=== PATIENT | female | born 1950 | race Caucasian/White ===

== ENCOUNTER → 2017-12-15 | Outpatient (CLI) | payer OTHER | END | disposition home or self-care (01) | LOC: C.PAPS 13:16 | PROVIDERS: ATTEND Obstetrics & Gynecology | DX: Z01.411 Encounter for gynecological examination (general) (routine) with abnormal findings (principal); R87.610 Atypical squamous cells of undetermined significance on cytologic smear of cervix (ASC-US) ==

== ENCOUNTER 2025-01-14 16:37 | Inpatient (IN) ==
--- OUTSIDE RECORDS SUMMARY | 2025-01-14 17:13 | External Medical Summary | Summary of Care ---
Author Name Unknown Organization [facility] Address [address] [place] [address] Phone [phone] Care Team Providers Care Caramel Maker Name Role Phone Tramaine Hills DO Primary Care Provider Reason for Visit * Reason Comments eRx-Medication Refill Encounter Details Date Type Department Care Team ([facility] st Contact Info) Description 11/29/2024 Refill Family Practice [facility] [address] [place] [address] Tramaine Hills DO [address] [place] [address] Encounter for long-term (current) use of medications* Allergies Active Allergy Reactions Criticality Noted Date Comments Sulfa Antibiotics Unknown 01/17/2008 documented as of this encounter (statuses as of 11/30/2024) Medications Denosumab 60 MG/ML Subcutaneous Solution Inject 60 mg under the skin. 1 inj every 6 mo Active PROCTO-MED HC 2.5 % rectal creamIndications: Hemorrhoids, external without complications Administer into the rectum 2 times a day. As needed 30 g 5 020 Active Hydrocortisone Acetate 25 MG Rectal Suppository (Anusol-HC)Indica tions:Hemorrhoids , external without complications Administer into the rectum 2 times a day in the morning and at bedtime as needed for Hemorrhoids. Up to 2 weeks. 24 Suppository 1 022 Active Memantine HCl 10 MG Oral Tablet (Namenda) TAKE 1 TABLET BY MOUTH 2 TIMES A DAY WITH MORNING AND EVENING MEALS. WEEK 4 AND THEREAFTER 180 Tablet 1 024 Active Atorvastatin Calcium 10 MG Oral Tablet (Lipitor)Indicati ons:Mixed hyperlipidemia TAKE 1 TABLET BY MOUTH EVERY MORNING 90 Tablet 3 024 Active Donepezil HCl 10 MG Oral Tablet (Aricept) TAKE 1 TABLET BY MOUTH EVERY DAY 90 Tablet 3 024 Active Loperamide HCl 2 MG Oral Capsule (Imodium)Indicati ons:Full incontinence of feces Take 1 Capsule by mouth 2 times a day as needed for Diarrhea. 60 Capsule 5 025 Active Hydrocortisone 2.5 % External CreamIndications: Eczema, unspecified type Apply topically to affected area 3 times a day. To affected area. 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 06/03/2024 Caregiver stress 06/03/2024 Alcohol ingestion, 1-4 drinks per day 09/30/2023 Personal history of fall 09/30/2023 Periorbital ecchymosis 09/30/2023 Early onset Alzheimer's meredith ntia without behavioral disturbance 11/12/2021 Protein-calorie malnutrition 07/12/2021 Mild cognitive impairment 10/19/2020 Osteoarthritis of right hip 11/09/2014 Senile osteoporosis 05/12/2012 documented as of this encounter (statuses as of 11/30/2024) Resolved Problems Problem Noted Date Diagnosed Date Resolved Date Dementia without behavioral disturbance 10/15/2020 12/04/2021 Overview (07/07/2022): ICD-10 update of inactive term ADVANCE DIRECTIVE INFORMATION 10/10/2009 03/27/2019 Overview (10/10/2009): No, Advance Directive brochure given to patient. Benign neoplasm of colon 10/04/200704/2019 Overview (10/13/2007): hyperplastic reepat colonoscopy in 10 yrs documented as of this encounter (statuses as of 11/30/2024) Immunizations Name Administration Dates Next Due COVID-19 mRNA, LNP-s, No Pre serve, 2-Dose Series (Pfizer) 08/05/2021,12/22/2020,12/01/2020 COVID-19, LNP-s, No Preserve , Kenny-sucrose, Ages 12+ (Pfizer) 01/15/2022 Covid-19, Mrna, Lnp-s, Pf, B ivalent, 30 Mcg, IM, 12 yrs and above (Pfizer) 09/04/2023 H1N1 2009 Influenza, IM 10/27/2009 Pneumococcal Conjugate Vacc, 13 Valent (Prevnar) 03/11/2016 Pneumococcal Polysaccharide PPV23 (Pneumovax) 11/03/2019 Season Influenza, Quad, PF, Adjuvanted, 65+ Yrs, IM (FLUAD) 06/26/2020 Seasonal Influenza Vac., MDV , IM, 0.5 mL (Fluzone) 06/25/2015,07/19/2014,07/02/2013,08/21,07/11/2009,06/19/2009,09/03/2007 Seasonal Influenza Virus Vac cine, Unspecified Formulation 09/04/2023 Seasonal Influenza, High Dos e, Trivalent, PF, IM (Fluzone HD) 11/11/2024 Seasonal Influenza, PF, 6 M & above, IM , (FluLaval or Fluzone) 11/13/2017 Seasonal Influenza, QUAD, wi th Preserv, 6 mons & Above, 0.5 mL, IM 08/12/2018 Seasonal Influenza, Quadriva lent Hd (Fluzone Hd) 07/03/2022,07/12/2021 TD, Preservative Free 10/15/2020 TDAP, Age 7 and older, IM (Adacel) 07/11/2009, Varicella Zoster Vaccine (Adult) 10/10/2009 Zoster Vaccine Recombinant (Shingrix) 02/14/2020 ,11/16/2019 documented as of this encounter Social History Tobacco Use Types Packs/Day Years Used Date Smoking Tobacco: Former Cigarettes 0.5 15 0 10/05/1969 - 10/05/1984 Smokeless Tobacco: Never Comments:no passive smoke ex posures Alcohol Use Standard Drinks/Week Comments Yes 0 (1 standard drink = 0.6 oz pur e alcohol) glass of wine daily PHQ-2 Answer Date Recorded PHQ Adult Total Score 3 07/03/2022 Hunger Vital Sign Answer Date Recorded Within the past 12 months, y ou worried that your food would run out before you got the money to buy more. Never true 07/03/20 22 Within the past 12 months, t he food you bought just didn't last and you didn't have money to get more. 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 Not on file Not on file documented as of this encounter Miscellaneous Notes * Telephone Encounter - [facility] - 11/30/2024 11:18 AM ESTSigned Prescriptions: Disp Refills Omeprazole 20 MG Oral Capsule Delayed Rele*90 Cap*1 Sig: TAKE 1 CAPSULE BY MOUTH DAILY 1 HOUR BEFORE THE FIRST MEAL OF THE DAYAuthorizing Provider: TRAMAINE HILLS User: WOOD GOTTI documented in this encounter Plan of Treatment Upcoming Encounters Date Type Department Care Team (Late st Contact Info) Description 01/20/2025 10:30 AM EDT Telemedicine Neurology, [place] [address] [place] [phone] Kelly Morgan MD [address] [place] [address] [place] [phone] 04/04/2025 2:30 PM EDT Office Visit Rheumatology [facility] [address] [place] [phone] Soco Batres CRNP [address] [facility] [place] [address] 07/10/2025 10:15 AM EDT Office Visit Neurology, [place] [address] [place] [address] [phone] Kelly Morgan MD [address] [place] [address] [place] [id number] Scheduled Orders Name Type Priority Associated Diagnoses Orde r Schedule VITAMIN B12 Lab Routine Encounter for long-term (current) use of medications Expected: 11/30/2024 (Approximate), Expires: 11/30/2025 Scheduled Procedures Name Priority Associated Diagnoses Date/Ti me COLONOSCOPY FLEXIBLE PROXIMAL DIAGNOSTIC Recall Colon cancer screening Health Maintenance Due Date Last Done Comments Cologuard 1995 Fecal Occult Blood Test 1995 Sigmoidoscopy 11/12/2007 11/12/2002, 11/11/2002 Adult Wellness Visit 07/03/2023 07/03/2022 Depression Screening 07/03/2023 07/03/2022 COVID-19 Vaccine ( season) 2024 09/04/2023, 01/15/2022, 08/05/2021, Additional history exists Mammogram 11/04/2025 11/04/2024, 08/06, 08/15/2022, Additional history exists Colonoscopy 12/20/2025 12/21/2015, 12/03, 10/04/2007 Colorectal Cancer Screening 12/20/2025 DXA Scan 09/05/2026 09/05/2024, 08/06, 08/13/2020, Additional history exists Lipid Panel 03/28/2029 03/28/2024, 09/05, 09/23/2021, Additional history exists DTap/Tdap Vaccines (4 - Td or Tdap) 10/15/2030 10/15/2020, 07/11/2009, 06/19/2009 Pneumococcal Vaccine: 50+ Years Completed 11/03/2019, 03/11/2016 Zoster Vaccines Completed 02/14/2020, 11/05, 10/10/2009 VITAMIN D LEVEL ONCE IN A LIFETIME-USE SMARTSET# [id number] Completed 03/28/2024, 03/16/2023, 09/25/2022, Additional history exists Influenza Vaccine (FLU shot) Completed 04/2025, 09/04/2023, 07/03/2022, Additional history exists HPV (Gardasil) Vaccine Aged Out No lo nger eligible based on patient's age to complete this topic Hepatitis B Vaccine Aged Out No longe r eligible based on patient's age to complete this topic MENINGOCOCCAL (MENACTRA/MENVEO) Aged Out No longer eligible based on patient's age to complete this topic Meningitis B Vaccine (Bexsero/Trumemba) Aged Out No longer eligible based on patient's age to complete this topic documented as of this encounter Medical Devices Not on filedocumented as of this encounter Visit Diagnoses Diagnosis Encounter for long-term (current) use of medications- Primary Encounter for long-term (current) use of other medications documented in this encounter Care Teams Caramel Maker Relationship Specialty Start Date End Date Tramaine Hills DO [address] [place] [address] PCP - General Family Medicine 07/02/18 documented as of this encounter
--- OUTSIDE RECORDS SUMMARY | 2025-01-14 17:13 | External Medical Summary | Summary of Care ---
Author Name Unknown Organization [facility] Address [address] [place] [address] Phone [phone] Care Team Providers Care Scooper Name Role Phone Ellyn Hills DO Primary Care Provider Encounter Details Date Type Department Care Team (Late st Contact Info) Description 09/26/2024 Orders Only Outcomes Research Department [address] [place] [address] Olamide Delgado [facility] Other*[id number] Allergies Active Allergy Reactions Criticality Noted Date Comments Sulfa Antibiotics Unknown 01/17/2008 documented as of this encounter (statuses as of 09/26/2024) Medications Denosumab 60 MG/ML Subcutaneous Solution Inject 60 mg under the skin. 1 inj every 6 mo Active PROCTO-MED HC 2.5 % rectal creamIndications:H emorrhoids, external without complications Administer into the rectum 2 times a day. As needed 30 g 5 01/30/20 20 Active Hydrocortisone 2.5 % External CreamIndications:H emorrhoids, external without complications Apply topically to affected area 3 times a day . To affected area. hemorrhoids 30 g 5 03/18/20 22 Active Hydrocortisone Acetate 25 MG Rectal Suppository (Anusol-HC)Indicat ions:Hemorrhoids, external without complications Administer into the rectum 2 times a day in the morning and at bedtime as needed for Hemorrhoids. Up to 2 weeks. 24 Suppository 1 03/18/20 22 Active Memantine HCl 10 MG Oral Tablet (Namenda) TAKE 1 TABLET BY MOUTH 2 TIMES A DAY WITH MORNING AND EVENING MEALS. 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 06/03/2024 Caregiver stress 06/03/2024 Alcohol ingestion, 1-4 drinks per day 09/30/2023 Personal history of fall 09/30/2023 Periorbital ecchymosis 09/30/2023 Early onset Alzheimer's meredith ntia without behavioral disturbance 11/12/2021 Protein-calorie malnutrition 07/12/2021 Mild cognitive impairment 10/19/2020 Osteoarthritis of right hip 11/09/2014 Senile osteoporosis 05/12/2012 documented as of this encounter (statuses as of 09/26/2024) Resolved Problems Problem Noted Date Diagnosed Date Resolved Date Dementia without behavioral disturbance 10/15/2020 12/04/2021 Overview (07/07/2022): ICD-10 update of inactive term ADVANCE DIRECTIVE INFORMATION 10/10/2009 03/27/2019 Overview (10/10/2009): No, Advance Directive brochure given to patient. Benign neoplasm of colon 10/04/200704/2019 Overview (10/13/2007): hyperplastic reepat colonoscopy in 10 yrs documented as of this encounter (statuses as of 09/26/2024) Immunizations Name Administration Dates Next Due COVID-19 mRNA, LNP-s, No Pre serve, 2-Dose Series (SingleFeed) 08/05/2021,12/22/2020,12/01/2020 COVID-19, LNP-s, No Preserve , Kenny-sucrose, [...] Vac cine, Unspecified Formulation 09/04/2023 Seasonal Influenza, PF, 6 M & above, [...] on file documented as of this encounter Plan of Treatment Upcoming Encounters Date Type Department Care Team (Late st Contact Info) Description 10/03/2024 2:30 PM EST Nurse Only Rheumatology [facility] [address] [facility] [place] [address] Pf, Nurse Rheum [address] [facility] [place] [address] 10/06/2024 8:00 AM EST Telemedicine Neurology, [place] [address] [facility] [phone] Kelly Morgan MD [address] [place] [address] [place] [phone] 11/11/2024 8:40 AM EST Office Visit Family Practice [facility] [address] [facility] [place] [address] Ellyn Hills, [address] [facility] [place] [address] Scheduled Orders Name Type Priority Associated Diagnoses Orde r Schedule MYCODE SUBSEQUENT ADULT Lab Routine MyCode Research Other*[id number] Every 6 Months for 2 Occurrences starting 09/26/2024 until 10/16/2025 Scheduled Procedures Name Priority Associated Diagnoses Date/Ti me COLONOSCOPY FLEXIBLE PROXIMAL DIAGNOSTIC Recall Colon cancer screening Health Maintenance Due Date Last Done Comments Cologuard 1995 Fecal Occult Blood Test 1995 Sigmoidoscopy 11/12/2007 11/12/2002, 11/11/2002 Adult Wellness Visit 07/03/2023 07/03/2022 Depression Screening 07/03/2023 07/03/2022 COVID-19 Vaccine (6 - 2024-25 season) 2024 09/04/2023, 01/15/2022, 08/05/2021, Additional history exists Influenza Vaccine (FLU shot) (#1) 2024 09/04/2023, 07/03/2022, 07/12/2021, Additional history exists Mammogram 08/25/2024 08/25/2023, 08/05, 07/30/2022, Additional history exists Colonoscopy 12/20/2025 12/21/2015, 12/03, 10/04/2007 Colorectal Cancer Screening 12/20/2025 DXA Scan 09/05/2026 09/05/2024, 08/06, 08/13/2020, Additional history exists Lipid Panel 03/28/2029 03/28/2024, 09/05, 09/23/2021, Additional history exists DTap/Tdap Vaccines (4 - Td or Tdap) 10/15/2030 10/15/2020, 07/11/2009, 06/19/2009 Pneumococcal Vaccine: 65+ Years Completed 11/03/2019, 03/11/2016 Zoster Vaccines Completed 02/14/2020, 11/05, 10/10/2009 VITAMIN D LEVEL ONCE IN A LIFETIME-USE SMARTSET# [id number] Completed 03/28/2024, 03/16/2023, 09/25/2022, Additional history exists HPV (Gardasil) Vaccine Aged [...] as of this encounter Visit Diagnoses Diagnosis MyCode Research Other*[id number] documented in this encounter Care Teams Scooper Relationship Specialty Start Date End Date Ellyn Hills DO [address] [place] [address] PCP - General Family Medicine 07/02/18 documented as of this encounter
--- OUTSIDE RECORDS SUMMARY | 2025-01-14 17:13 | External Medical Summary | Summary of Care ---
Author Name Unknown Organization [facility] Address [address] [place] [address] Phone [phone] Care Team Providers Care Protocol Officer Name Role Phone Ellyn Hills Primary Care Provider Reason for Visit * Reason Onset Date Comments Order Request 09/26/2024 Prolia Encounter Details Date Type Department Care Team ([facility] st Contact Info) Description 09/26/[address] [facility] [address] [place] [address] Soco Batres CRNP [address] [facility], [place] [phone] Order Request (Prolia/) Allergies Active Allergy Reactions Criticality Noted Date Comments Sulfa Antibiotics Unknown 01/17/2008 documented as of this encounter (statuses as of 09/27/2024) Medications Denosumab 60 MG/ML Subcutaneous Solution Inject [...] DAY 90 Tablet 3 06/09/20 24 Active Hospital, Clinic, or Other Facility Administered Medication Ordered Dose Route Frequency Start Date End Date Status Denosumab (Prolia) subcut inj 60 mgIndications:Senile osteoporosis 60 mg SC ONCE 10/03/2024 10/04/2024 Active documented as of this encounter (statuses as of 09/27/2024) Active Problems Problem Noted Date Diagnosed Date [...] as of this encounter (statuses as of 09/27/2024) Resolved Problems Problem Noted Date Diagnosed Date Resolved Date Dementia without behavioral disturbance 10/15/2020 12/04/2021 Overview (07/07/2022): ICD-10 update of inactive term ADVANCE DIRECTIVE INFORMATION 10/10/2009 03/27/2019 Overview (10/10/2009): No, Advance Directive brochure given to patient. Benign neoplasm of colon 10/04/200704/2019 Overview (10/13/2007): hyperplastic reepat colonoscopy in 10 yrs documented as of this encounter (statuses as of 09/27/2024) Immunizations Name Administration Dates Next Due COVID-19 [...] encounter Miscellaneous Notes * Telephone Encounter - Justin Santana MD - 09/27/2024 11:24 AM EST signed * Telephone Encounter - Judith Jack LPN - 09/26/2024 3:50 PM EST Chart reviewed and labs noted to be within normal limits. Patient has been seen within the last 12 months by a Rheumatology provider. Prolia authorization approved and updated in referral. Last injection has been > 6 months and 1 day. CAM orders pended for signature. Thank you! documented in this encounter Plan of Treatment Upcoming Encounters Date Type Department Care Team (Late st Contact Info) Description 10/03/2024 2:30 PM EST Nurse Only Rheumatology [place] [id number] [place] [address] Pf, Nurse Rheum [facility] [place] [address] 10/06/2024 8:00 AM EST Telemedicine Neurology, [place] [address] [place] [address] Kelly Morgan MD [address] [place] [address] [place] [phone] 11/11/2024 8:40 AM EST Office Visit Family Practice [facility] [address] [facility] [place] [address] Ellyn Hills, [address] [facility] [place] [address] Scheduled Procedures Name Priority Associated Diagnoses Date/Ti [...] D LEVEL ONCE IN A LIFETIME-USE SMARTSET# [id number] Completed 03/28/2024, 03/16/2023, 09/25/2022, Additional history exists [...] as of this encounter Visit Diagnoses Diagnosis Senile osteoporosis- Primary documented in this encounter Care Teams Protocol Officer Relationship Specialty Start Date End Date Ellyn Hills DO [address] [place] [address] PCP - General Family Medicine 07/02/18 documented as of this encounter
--- OUTSIDE RECORDS SUMMARY | 2025-01-14 17:13 | External Medical Summary | Summary of Care ---
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)*; Aphasia Allergies Active Allergy Reactions Criticality Noted Date Comments Sulfa Antibiotics Unknown 01/17/2008 documented as of this encounter (statuses as of 10/06/2024) Medications Denosumab 60 MG/ML Subcutaneous Solution Inject [...] as of this encounter (statuses as of 10/06/2024) Active Problems Problem Noted Date Diagnosed Date [...] as of this encounter (statuses as of 10/06/2024) Resolved Problems Problem Noted Date Diagnosed Date Resolved Date Dementia without behavioral disturbance 10/15/2020 12/04/2021 Overview (07/07/2022): ICD-10 update of inactive term ADVANCE DIRECTIVE INFORMATION 10/10/2009 03/27/2019 Overview (10/10/2009): No, Advance Directive brochure given to patient. Benign neoplasm of colon 10/04/200704/2019 Overview (10/13/2007): hyperplastic reepat colonoscopy in 10 yrs documented as of this encounter (statuses as of 10/06/2024) Immunizations Name Administration Dates Next Due COVID-19 mRNA, LNP-s, No Pre serve, 2-Dose Series ([employer]) 08/05/2021,12/22/2020,12/01/2020 COVID-19, LNP-s, No Preserve , Kenny-sucrose, [...] on file documented as of this encounter Progress Notes * Kelly Morgan MD - 10/06/2024 8:04 AM EST Patient location: HOME. I was in a hospital or clinic location. After connecting through televideo,patient was verified with two unique identifiers. Patient (or authorized legal desk representative) was then informed that this was a Telemedicine visit and being conducted confidentially over secure lines. Methods to assure confidentiality were taken. Patient acknowledged consent and understanding of pr ivacy and security of the Telemedicine visit. The patient agreed to participate. [facility] Today I had the pleasure of seeing Olesya Sherman in follow-up at the [facility] Cognition Program. 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 She underwent neuropsychological testing which showed profound language impairment, as well as someexecutive dysfunction, attention/working memory and delayed recall (some preserved cuing). Her MRI was relatively unremarkable--mild vascular disease changes and atrophy, possibly more predominant posteriorly. The most important diagnosis in this case is late moderate/early severe dementia, probable Alzheimer's disease with a language predominance. She needs help with all iADLs and assistance with ADLS--including bathing, dressing, cutting food/feeding. Has increased trouble toileting--no incontinence. Cannot test anymore--profound aphasia. Mild EPS--hunched posture; per shuffling steps, no falls or trouble with stairs. She walks but less now--[facility]. They have been to elder miter cutter. Behavioral Issues: excessive drinking has resolved. No anxiety but some restlessness. Safety Issues: None. No wandering. Balance reported as OK. Swallow OK. still working, plans to retire in the next 1-2 years in phases. They are on waitlist for [facility]. is primary caregiver; [employer] while he is at work; he is looking into them coming in for more hours. I provided in their check out material for the patient and spouse a written summary that outlines the management plan thus far after providing counseling on these items, which I also list below. Bennie return to our clinic about January 2025 Thank you once again for allowing us to participate in the care of this patient. No changes made today. No orders found. There are no Patient Instructions on file for this visit. Interval History Since our last visit, by report of the spouse Olesya Sherman has been doing worse. Much more trouble with mobility--shuffling. She is more restless, like starting to go on treadmill 5 mins, then bathroom, then stroll, then back to treadmill. She is not getting her 20K steps. Diet of OJ and chocolate cookies. Not eating as much breakfast and lunch. Will eat main protein at dinner. She is not losing weight. No trouble with swallowing. May pepper picker spoon instead of fork, or reminders needed to use utensil--may eat with hands. Sleep: good. She nods off in the day--last week or so--might be part of the cold she is fighting. She has been more "anxious"--tense a lot--when he is helping her dress she wants to help, but missing the sleeve. Body is tense. Explained that this may be EPS. She may suddlenly decide she needs to do something--like while eating has to let the cat out. She is more impulsive, and things have to bedone right now for her. No compulsive behaviors. SHe tends to fill glasses to the brim. Routine of house upset bc of holidays--she handled it OK and glad to see everyone. They are looking at [employer]. They will need assessments--PCP, plus fall assessment, and cognitive testing. They have moved from waitlist to more of a "short list". He is still working. 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 No one coming in while he is not teaching--but this will have to change. They are working with [employer]. has had increased stress level. It is hard to get anything done except day to day. He wantsto keep his job and his health insurance. He made a proprosal to go into phased fpc over 2 years starting in April. The toileting is a big issue. She knows when she needs to go. She is now in disposable underwear. That saves one step in cleaning up. She has a lot of gas, passes it immediately, whatever the situation. When he changes underwear there is some evidence of excrement, he cleans her and puts on clean underwear. She is leaving excrement on the side of wall and front of toilet and on the floor. Husbandsigned up online for caregiver course at [facility]. With regards to our instructions on last visit, the patient has been able to follow all recommendations. With regards to her health status during this time period, has not had any serious surgeries, emergency department visits or hospitalizations. Since their last visit, she has not had changes to her medications other than what I recommended onher last visit. Current Outpatient Medications Medication Sig Dispense Refill Donepezil HCl 10 MG Oral Tablet (Aricept) TAKE 1 TABLET BY MOUTH EVERY DAY 90 Tablet 3 Atorvastatin Calcium 10 MG Oral Tablet (Lipitor) TAKE 1 TABLET BY MOUTH EVERY MORNING 90 Tablet 3 Omeprazole 20 MG Oral Capsule Delayed Release (PriLOSEC) TAKE 1 CAPSULE BY MOUTH DAILY 1 HOUR BEFORE THE FIRST MEAL OF THE DAY 90 Capsule 1 Memantine HCl 10 MG Oral Tablet (Namenda) TAKE 1 TABLET BY MOUTH 2 TIMES A DAY WITH MORNING AND EVENING MEALS. WEEK 4 AND THEREAFTER 180 Tablet 1 Hydrocortisone 2.5 % External Cream Apply topically to affected area 3 times a day . To affected area. hemorrhoids 30 g 5 Hydrocortisone Acetate 25 MG Rectal Suppository (Anusol-HC) Administer into the rectum 2 times a day in the morning and at bedtime as needed for Hemorrhoids. Up to 2 weeks. 24 Suppository 1 PROCTO-MED HC 2.5 % rectal cream Administer into the rectum 2 times a day. As needed 30 g 5 Denosumab 60 MG/ML Subcutaneous Solution Inject 60 mg under the skin. 1 inj every 6 mo No current facility-administered medications for this visit. Review of patient's allergies indicates: Allergen Reactions Sulfa Antibiotics Unknown Results for orders placed or performed in visit on 05/23/24 CULTURE, URINE, QUANTITATIVE Specimen: Urine, Clean Catch Result Value Ref Range Culture Growth No significant growth URINALYSIS, POINT OF CARE (ENTER/EDIT) Result Value Ref Range Color, Urine Yellow Yellow or Light Yellow Clarity, Urine Clear Clear Glucose, Urine Negative Negative mg/dL Bilirubin, Urine Negative Negative Ketone, Urine Negative Negative mg/dL Specific Kelford, Urine 1.015 1.003 - 1.030 Blood, Urine Trace-lysed Negative pH, Urine 7.0 5.0 - 7.5 units Protein, Urine Negative Negative mg/dL Urobilinogen, Urine 0.2 0.2 - 1.0 mg/dL Nitrite, Urine Negative Negative Esterase, Urine Negative Negative Examination There were no vitals taken for this visit. On examination today, the patient’s general appearance was well nourished, well developed, and inno apparent distress. Non-coherent speech. Can follow simple commands with prompting (eg stand up, walk). Can stand on own, flexed arms when walking, stooped posture. No evidence of shuffling today. Facial expression reduced. Additional Information Permission was not requested for observers to be in the room during this visit. Today, I personally spent 44 minutes in pre reviewing the patient's outside/prior records, separately obtaining history, performing a medically appropriate history and exam as documented above, counseling and educating the patient, documenting the clinical information in the EMR, independently revie wing and interpreting results as documented above and ordering prescription medications, tests and/or procedures as documented above Thank you once for consulting us on this interesting case. Assessment and plan can be found at the beginning of this consultation note. documented in this encounter Plan of Treatment Upcoming Encounters Date Type Department Care Team (Late st Contact Info) Description 11/11/2024 8:40 AM EST Office Visit [address] [place], [place] [address] Ellyn Hills, [address] [place] [address] 04/04/2025 2:30 PM EDT Office Visit Rheumatology [facility] [address] [place] [address] Soco Batres CRNP [address] [employer] [place] [address] Scheduled Procedures Name Priority Associated Diagnoses Date/Ti [...] D LEVEL ONCE IN A LIFETIME-USE SMARTSET# [id number] Completed 03/28/2024, 03/16/2023, 09/25/2022, Additional history exists [...] as of this encounter Visit Diagnoses Diagnosis 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
--- OUTSIDE RECORDS SUMMARY | 2025-01-14 17:13 | External Medical Summary | Summary of Care ---
Author Name Unknown Organization [facility] Address [address] [place] [address] Phone [phone] Care Team Providers Care Filtration Plant Operator Name Role Phone Michaelwilton Ellyn Quiñonez DO Primary Care Provider Reason for Visit * Reason Onset Date Comments Medication Administration prolia Medication Administration 10/03/2024 Prolia * Precert (Within 30 days (routine)) - Closed Specialty Diagnoses / Procedures Referred By Contac t Referred To Contact Rheumatology Diagnoses Age-related osteoporosis without current pathological fracture Procedures MT DENOSUMAB INJECTION Justin Santana MD [address] [place] [address] Phone: tel: fax: Justin Santana MD [address] [place] [address] Phone: tel: fax: Referral ID Status Reason Start Date Expiration Date V isits Requested Visits Authorized [id number] Closed Precert 03/03/2024 03/02/2025 2 2 Encounter Details Date Type Department Care Team ([facility] st Contact Info) Description 10/03/2024 2:30 PM EST Nurse Only Rheumatology [place] [id number] [facility] [place] [address] Pf, Nurse Rheum [facility] [place] [address] Medication Administration (prolia); Medica... Allergies Active Allergy Reactions Criticality Noted Date Comments Sulfa Antibiotics Unknown 01/17/2008 documented as of this encounter (statuses as of 10/03/2024) Medications Denosumab 60 MG/ML Subcutaneous Solution Inject 60 mg under the skin. 1 inj every 6 mo Active PROCTO-MED HC 2.5 % rectal creamIndications:H emorrhoids, external without complications Administer into the rectum 2 times a day. As needed 30 g 01/30/20 20 Active Hydrocortisone 2.5 % External [...] mgIndications:Senile osteoporosis 60 mg SC ONCE 10/03/2024 10/03/2024 Ended documented as of this encounter (statuses as of 10/03/2024) Active Problems Problem Noted Date Diagnosed Date [...] as of this encounter (statuses as of 10/03/2024) Resolved Problems Problem Noted Date Diagnosed Date Resolved Date Dementia without behavioral disturbance 10/15/2020 12/04/2021 Overview (07/07/2022): ICD-10 update of inactive term ADVANCE DIRECTIVE INFORMATION 10/10/2009 03/27/2019 Overview (10/10/2009): No, Advance Directive brochure given to patient. Benign neoplasm of colon 10/04/200704/2019 Overview (10/13/2007): hyperplastic reepat colonoscopy in 10 yrs documented as of this encounter (statuses as of 10/03/2024) Immunizations Name Administration Dates Next Due COVID-19 mRNA, LNP-s, No Pre serve, 2-Dose Series ([employer]) 08/05/2021,12/22/2020,12/01/2020 COVID-19, LNP-s, No Preserve , Kenny-sucrose, [...] on file documented as of this encounter Last Filed Vital Signs Vital Sign Reading Time Taken Comments Blood Pressure - - Pulse - - Temperature 36.4 °C (97.5 °F) 10/03/2024 2:43 PM ES T Respiratory Rate - - Oxygen Saturation - - Inhaled Oxygen Concentration - - Weight - - Height - - Body Mass Index - - documented in this encounter Progress Notes * Judith Jack LPN - 10/03/2024 2:43 PM EST Olesya Sherman presents today for administration of Prolia. She understands the benefits and risks of this treatment. An educational pamphlet was given to the patient. Prolia 60 mg was administered subcutaneously. The patient tolerated the procedure without problems. She will return in 6 months for the next injection and evaluation. Judith Jack LPN documented in this encounter Nursing Notes * Judith Jack LPN - 10/03/2024 2:43 PM EST Chief Complaint Patient presents with Medication Administration prolia Patient denies being on any antibiotics, no current infections, no upcoming surgeries or dental procedures, no open wounds or sores, no current fractures. documented in this encounter Plan of Treatment Upcoming Encounters Date Type Department Care Team (Late st Contact Info) Description 10/06/2024 8:00 AM EST Telemedicine Neurology, [place] [address] [place] [address] Kelly Morgan MD [address] [place] [address] [place] [address] 11/11/2024 8:40 AM EST Office Visit Family Practice [facility] [address] [facility] [place] [address] Ellyn Hills, [address] [facility] [place], [place] [address] 04/04/2025 2:30 PM EDT Office Visit Rheumatology [facility] [address] [place] [address] Soco Batres CRNP [address] [place] [address] Scheduled Procedures Name Priority Associated Diagnoses Date/Ti [...] D LEVEL ONCE IN A LIFETIME-USE SMARTSET# [id number] Completed 03/28/2024, 03/16/2023, 09/25/2022, Additional history exists [...] Senile osteoporosis- Primary documented in this encounter Administered Medications Inactive Administered Medications - up to 3 most recent administrations Medication Order MAR Action Action Date Dose Rate Site Denosumab (Prolia) subcut inj 60 mg 60 mg, Subcutaneous, ONCE, On 10/03/24 at 1430, For 1 doseIndications:Senile osteoporosis Given 10/03/2024 2:47 PM EST 60 mg Arm Left Upper documented in this encounter Care Teams Filtration Plant Operator Relationship Specialty Start Date End Date Ellyn Hills DO [address] [place], [place] [phone] PCP - General Family Medicine 07/02/18 documented as of this encounter
--- OUTSIDE RECORDS SUMMARY | 2025-01-14 17:13 | External Medical Summary | Summary of Care ---
Author Name Unknown Organization [facility] Address [address] [place] [address] Phone [phone] Care Team Providers Care Carrot Grader Inspector Name Role Phone Jeana Ellyn Quiñonez DO Primary Care Provider Encounter Details Date Type Department Care Team ([facility] st Contact Info) Description 12/07/2024 Orders Only PATIENT PORTAL DO NOT DELETE THIS DEPT [facility] [id number] Allergies Active Allergy Reactions Criticality Noted Date Comments Sulfa Antibiotics Unknown 01/17/2008 documented as of this encounter (statuses as of 12/07/2024) Medications Denosumab 60 MG/ML Subcutaneous Solution Inject 60 mg under the skin. 1 inj every 6 mo Active PROCTO-MED HC 2.5 % rectal creamIndications:H emorrhoids, external without complications Administer into the rectum 2 times a day. As needed 30 g 5 01/30/20 20 Active Hydrocortisone Acetate 25 MG Rectal Suppository [...] THEREAFTER 180 Tablet 1 03/10/20 24 Active Atorvastatin Calcium 10 MG Oral Tablet (Lipitor)Indicatio ns:Mixed hyperlipidemia TAKE 1 TABLET BY MOUTH EVERY MORNING 90 Tablet 3 06/08/20 24 Active Donepezil HCl 10 MG Oral Tablet (Aricept) TAKE 1 TABLET BY MOUTH EVERY DAY 90 Tablet 3 06/09/20 24 Active Loperamide HCl 2 MG Oral Capsule (Imodium)Indicatio ns:Full incontinence of feces Take 1 Capsule by mouth 2 times a day as needed for Diarrhea. 60 Capsule 5 11/11/19 25 Active Hydrocortisone 2.5 % External CreamIndications:E czema, unspecified type Apply topically to affected area 3 times a day. To affected area. Rash on leg 60 g 5 11/11/19 25 Active Omeprazole 20 MG Oral Capsule Delayed Release (PriLOSEC) TAKE 1 CAPSULE BY MOUTH DAILY 1 HOUR BEFORE THE FIRST MEAL OF THE DAY 90 Capsule 1 11/30/19 25 Active documented as of this encounter (statuses as of 12/07/2024) Active Problems Problem Noted Date Diagnosed Date [...] as of this encounter (statuses as of 12/07/2024) Resolved Problems Problem Noted Date Diagnosed Date Resolved Date Dementia without behavioral disturbance 10/15/2020 12/04/2021 Overview (07/07/2022): ICD-10 update of inactive term ADVANCE DIRECTIVE INFORMATION 10/10/2009 03/27/2019 Overview (10/10/2009): No, Advance Directive brochure given to patient. Benign neoplasm of colon 10/04/200704/2019 Overview (10/13/2007): hyperplastic reepat colonoscopy in 10 yrs documented as of this encounter (statuses as of 12/07/2024) Immunizations Name Administration Dates Next Due COVID-19 [...] Description 01/20/2025 10:30 AM EDT Telemedicine Neurology, [place] [address] [place] [phone] Kelly Morgan MD [address] [place] [address] [place] [address] 04/04/2025 2:30 PM EDT Office Visit Rheumatology [facility] [address] [place] [phone] Soco Batres CRNP [address] [facility] [place] [address] 07/10/2025 10:15 AM EDT Office Visit Neurology, [place] [address] [place] [phone] Kelly Morgan MD [address] [place] [address] [place] [address] Scheduled Procedures Name Priority Associated Diagnoses Date/Ti [...] D LEVEL ONCE IN A LIFETIME-USE SMARTSET# [id number] Completed 03/28/2024, 03/16/2023, 09/25/2022, Additional history exists [...] Not on filedocumented as of this encounter Care Teams Carrot Grader Inspector Relationship Specialty Start Date End Date Ellyn Hills DO [address] [place] [address] PCP - General Family Medicine 07/02/18 documented as of this encounter
--- OUTSIDE RECORDS SUMMARY | 2025-01-14 17:13 | External Medical Summary | Summary of Care ---
Author Name Unknown Organization [facility] Address [address] [place] [address] Phone [phone] Care Team Providers Care Gumming Machine Operator Name Role Phone Ellyn Hills DO Primary Care Provider Reason for Visit * Reason Onset Date Comments Advice 07/27/2024 Appointment 07/27/2024 Encounter Details Date Type Department Care Team ([facility] st Contact Info) Description 07/27/2024 Telephone Family Practice [facility] [address] [place] [address] Ellyn Hills DO [address] [place] [address] Advice; Appointment Allergies Active Allergy Reactions Criticality Noted Date Comments Sulfa Antibiotics Unknown 01/17/2008 documented as of this encounter (statuses as of 10/26/2024) Medications Denosumab 60 MG/ML Subcutaneous Solution Inject [...] as of this encounter (statuses as of 10/26/2024) Active Problems Problem Noted Date Diagnosed Date [...] as of this encounter (statuses as of 10/26/2024) Resolved Problems Problem Noted Date Diagnosed Date Resolved Date Dementia without behavioral disturbance 10/15/2020 12/04/2021 Overview (07/07/2022): ICD-10 update of inactive term ADVANCE DIRECTIVE INFORMATION 10/10/2009 03/27/2019 Overview (10/10/2009): No, Advance Directive brochure given to patient. Benign neoplasm of colon 10/04/200704/2019 Overview (10/13/2007): hyperplastic reepat colonoscopy in 10 yrs documented as of this encounter (statuses as of 10/26/2024) Immunizations Name Administration Dates Next Due COVID-19 mRNA, LNP-s, No Pre serve, 2-Dose Series ([employer]) 08/05/2021,12/22/2020,12/01/2020 COVID-19, LNP-s, No Preserve , Kenny-sucrose, [...] encounter Miscellaneous Notes * Telephone Encounter - Ana Romeo OSA - 09/09/2024 1:28 PM EST Talked to Alberto, pt no longer needs acute appointment but did schedule return visit with Dr. Hills in Nov * Telephone Encounter - Ana Romeo OSA - 09/07/2024 2:24 PM EST Called pt and left vm to call us if she needs appointment. Has not been seen yet and has not returned calls * Telephone Encounter - Sarah Druán OSA - 08/22/2024 1:19 PM EST Contacted patient to schedule an appointment and left a vm for patient to call back and get scheduled. * Telephone Encounter - Nila Marquez OSA - 07/27/2024 3:26 PM EDT No Appointments Available Patient declined appointments?: No What Visit Type is needed? Acute If Acute Visit Type is needed, were surrounding clinics offered to patient (Yes/No)? Yes Was patient offered appointments with other available providers (Yes/No)? Yes See Call Details? (Yes or No): Yes Prefers Thursday morning or late Thursday afternoon. Or anytime after 5:30pm on . documented in this encounter Plan of Treatment Upcoming Encounters Date Type Department Care Team (Late st Contact Info) Description 11/11/2024 8:40 AM EST Office Visit Family Practice [facility] [address] [facility] [place] [address] Ellyn [place], [address] [facility] [place] [address] 04/04/2025 2:30 PM EDT Office Visit Rheumatology [facility] [address] [place] [phone] Soco Batres CRNP [address] [facility] [place] [address] Scheduled Procedures Name Priority Associated Diagnoses Date/Ti [...] D LEVEL ONCE IN A LIFETIME-USE SMARTSET# [id number] Completed 03/28/2024, 03/16/2023, 09/25/2022, Additional history exists [...] filedocumented as of this encounter Care Teams Gumming Machine Operator Relationship Specialty Start Date End Date Ellyn Hills DO [address] [place] [address] PCP - General Family Medicine 07/02/18 documented as of this encounter
--- OUTSIDE RECORDS SUMMARY | 2025-01-14 17:13 | External Medical Summary | Summary of Care ---
Author Name Unknown Organization [facility] Address [address] [place] [address] Phone [phone] Care Team Providers Care Municipal Clerk Name Role Phone Jeana Ellyn Olamide Primary Care Provider Encounter Details Date Type Department Care Team ([facility] st Contact Info) Description 05/16/2024 Telephone Neurology, [place] Jamey Chirinos [address] [place] [address] Kelly Morgan MD [address] [place] [address] Allergies Active Allergy Reactions Criticality Noted Date Comments Sulfa Antibiotics Unknown 01/17/2008 documented as of this encounter (statuses as of 08/15/2024) Medications Denosumab 60 MG/ML Subcutaneous Solution Inject 60 mg under the skin. 1 inj every 6 mo Active PROCTO-MED HC 2.5 % rectal creamIndications: Hemorrhoids, external without complications Administer into the rectum 2 times a day. As needed 30 g 5 01/30/20 20 Active Hydrocortisone 2.5 % External CreamIndications: Hemorrhoids, external without complications Apply topically to affected [...] THEREAFTER 180 Tablet 1 03/10/20 24 Active documented as of this encounter (statuses as of 08/15/2024) Active Problems Problem Noted Date Diagnosed Date [...] as of this encounter (statuses as of 08/15/2024) Resolved Problems Problem Noted Date Diagnosed Date Resolved Date Dementia without behavioral disturbance 10/15/2020 12/04/2021 Overview (07/07/2022): ICD-10 update of inactive term ADVANCE DIRECTIVE INFORMATION 10/10/2009 03/27/2019 Overview (10/10/2009): No, Advance Directive brochure given to patient. Benign neoplasm of colon 10/04/200704/2019 Overview (10/13/2007): hyperplastic reepat colonoscopy in 10 yrs documented as of this encounter (statuses as of 08/15/2024) Immunizations Name Administration Dates Next Due COVID-19 mRNA, LNP-s, No Pre serve, 2-Dose Series ([employer]) 08/05/2021,12/22/2020,12/01/2020 COVID-19, LNP-s, No Preserve , Kenny-sucrose, [...] Care Team (Late st Contact Info) Description 09/05/2024 10:30 AM EST Imaging Radiology, [address] [place] [address] 10/03/2024 2:30 PM EST Nurse Only Rheumatology [address] [place] [address] Pf, Nurse Rheum [address] [place] [address] [place] [address] 10/06/2024 8:00 AM EST [facility] [place] [address] [facility] [phone] Kelly Morgan MD [address] [place] [address] [place] [address] Scheduled Procedures Name Priority Associated Diagnoses Date/Ti [...] 08/25/2024 08/25/2023, 08/05, 07/30/2022, Additional history exists DXA Scan 08/27/2024 08/27/2022, 1106/2020, 08/11/2018, Additional history exists Colonoscopy 12/20/2025 12/21/2015, 12/03, 10/04/2007 Colorectal Cancer Screening 12/20/2025 Lipid Panel 03/28/2029 03/28/2024, 09/05, 09/23/2021, Additional history exists DTap/Tdap Vaccines (4 - Td or Tdap) 10/15/2030 10/15/2020, 07/11/2009, 06/19/2009 Pneumococcal Vaccine: 65+ Years Completed 11/03/2019, 03/11/2016 Zoster Vaccines Completed 02/14/2020, 11/05, 10/10/2009 VITAMIN D LEVEL ONCE IN A LIFETIME-USE SMARTSET# [id number] Completed 03/28/2024, 03/16/2023, 09/25/2022, Additional history exists [...] filedocumented as of this encounter Care Teams Municipal Clerk Relationship Specialty Start Date End Date Ellyn Hills DO [address] [place] [address] PCP - General Family Medicine 07/02/18 documented as of this encounter
--- OUTSIDE RECORDS SUMMARY | 2025-01-14 17:13 | External Medical Summary | Summary of Care ---
Author Name Unknown Organization [facility] Address [address] [place] [address] Phone [phone] Care Team Providers Care Puppy Sitter Name Role Phone Ellyn Hills DO Primary Care Provider Reason for Visit * Reason Onset Date Comments Other 05/11/2024 [facility] - Physic al therapyReview & Sign Encounter Details Date Type Department Care Team ([facility] st Contact Info) Description 05/11/2024 Telephone Neurology, [place] [address] [place] [address] Kelly Morgan MD [address] [place] [address] [place] [address] Other ([facility] - Physical therapy//Review ... Allergies Active Allergy Reactions Criticality Noted Date Comments Sulfa Antibiotics Unknown 01/17/2008 documented as of this encounter (statuses as of 08/10/2024) Medications Medication Sig Dispensed Refills Start Date End Date Status Denosumab 60 MG/ML Subcutaneous Solution Inject 60 mg under the skin. 1 inj every 6 mo Active PROCTO-MED HC 2.5 % rectal creamIndications:He morrhoids, external without complications Administer into the rectum 2 times a day. As needed 30 g 5 01/30/2020 Active Hydrocortisone 2.5 % External CreamIndications:He morrhoids, external without complications Apply topically to affected area 3 times a day . To affected area. hemorrhoids 30 g 5 03/18/2022 Active Hydrocortisone Acetate 25 MG Rectal Suppository (Anusol-HC)Indicati ons:Hemorrhoids, external without complications Administer into the rectum 2 times a day in the morning and at bedtime as needed for Hemorrhoids. Up to 2 weeks. 24 Suppository 1 03/18/2022 Active Memantine HCl 10 MG Oral Tablet (Namenda) TAKE 1 TABLET BY MOUTH 2 TIMES A DAY WITH MORNING AND EVENING MEALS. WEEK 4 AND THEREAFTER 180 Tablet 1 03/10/2024 Active documented as of this encounter (statuses as of 08/10/2024) Active Problems Problem Noted Date Diagnosed Date [...] as of this encounter (statuses as of 08/10/2024) Resolved Problems Problem Noted Date Diagnosed Date Resolved Date Dementia without behavioral disturbance 10/15/2020 12/04/2021 Overview: ICD-10 update of inactive term ADVANCE DIRECTIVE INFORMATION 10/10/2009 03/27/2019 Overview: No, Advance Directive brochure given to patient. Benign neoplasm of colon 10/04/200704/2019 Overview: hyperplastic reepat colonoscopy in 10 yrs documented as of this encounter (statuses as of 08/10/2024) Immunizations Name Administration Dates Next Due COVID-19 mRNA, LNP-s, No Pre serve, 2-Dose Series ([employer]) 08/05/2021,12/22/2020,12/01/2020 COVID-19, LNP-s, No Preserve , Kenny-sucrose, Ages 12+ ([employer]) 01/15/2022 Covid-19, Mrna, Lnp-s, Pf, B ivalent, 30 Mcg, IM, 12 yrs and above ([employer]) 09/04/2023 H1N1 2009 Influenza, IM 10/27/2009 Pneumococcal [...] money to get more. Never true 07/03/2022 Utilities Answer Date Recorded Do you have trouble paying y our heating, water, or electric bill? (Adult - for ages 18 years and over) Not on file 03/22/2024 Is your family able to pay t he heat, water, or electric bill? (Household - for ages 0-17 years) Not on file 03/22/2024 Does your family have access to good internet? (Household - for ages 0-17 years) Not on file 03/22/2024 Social Connections Answer Date Recorded How often do you feel lonely or isolated from those around you? (Adult - for ages 18 years and over) Not on file 03/22/2024 Sex and Gender Information Value Date Recorded Sex Assigned at Female 07/03/2022 1:04 PM EDT Gender Identity Female 07/03/2022 1:04 PM EDT Sexual Orientation Straight 07/03/2022 1: 04 PM EDT Job Start Date Occupation Industry Not on file Not on file Not on file documented as of this encounter Miscellaneous Notes * Telephone Encounter - Cecy Romeo OSA - 05/11/2024 8:50 AM EDT [facility] - Physical therapy Review & Sign documented in this encounter Plan of Treatment Upcoming Encounters Date Type Department Care Team (Late st Contact Info) Description 09/05/2024 10:30 AM EST Imaging Radiology, [place] [address] [place] [address] 10/03/2024 2:30 PM EST Nurse Only Rheumatology [place] [id number] [place] [address] Pf, Nurse Rheum [facility] [place] [address] 10/06/2024 8:00 AM EST Telemedicine Neurology, [place] [address] [facility] [phone] Kelly Morgan MD [address] [place] [address] [place] [phone] Scheduled Procedures Name Priority [...] Additional history exists DXA Scan 08/27/2024 08/27/2022, 06/2020, 08/11/2018, Additional history exists Colonoscopy 12/20/2025 12/21/2015, 12/03, 10/04/2007 Colorectal Cancer Screening 12/20/2025 Lipid Panel 03/28/2029 03/28/2024, 09/05, 09/23/2021, Additional history exists DTap/Tdap Vaccines (4 - Td or Tdap) 10/15/2030 10/15/2020, 07/11/2009, 06/19/2009 Pneumococcal Vaccine: 65+ Years Completed 11/03/2019, 03/11/2016 Zoster Vaccines Completed 02/14/2020, 11/05, 10/10/2009 VITAMIN D LEVEL ONCE IN A LIFETIME-USE SMARTSET# [id number] Completed 03/28/2024, 03/16/2023, 09/25/2022, Additional history exists [...] filedocumented as of this encounter Care Teams Puppy Sitter Relationship Specialty Start Date End Date Ellyn Hills DO [address] [place] [address] PCP - General Family Medicine 07/02/18 documented as of this encounter
--- OUTSIDE RECORDS SUMMARY | 2025-01-14 17:13 | External Medical Summary | Summary of Care ---
Author Name Unknown Organization [facility] Address [address] [place] [address] Phone [phone] Care Team Providers Care Amusement Or Recreation Card Checker Name Role Phone Ellyn Hills DO Primary Care Provider Reason for Visit * Reason Comments Re-Check Encounter Details Date Type Department Care Team ([facility] st Contact Info) Description 11/11/2024 8:40 AM EST Office Visit Family [facility] [address] [place] [address] Ellyn Hills DO [address] [place] [address] Alzheimer's disease (HCC)*; Need for prophylactic vaccination and inoculation against influenza; Incomplete defecation; Eczema, unspecified type; Caregiver stress; Full incontinence of feces Allergies Active Allergy Reactions Criticality Noted Date Comments Sulfa Antibiotics Unknown 01/17/2008 documented as of this encounter (statuses as of 11/11/2024) Medications Denosumab 60 MG/ML Subcutaneous Solution Inject [...] AND THEREAFTER 180 Tablet 1 024 Active Omeprazole 20 MG Oral Capsule Delayed Release (PriLOSEC) TAKE 1 CAPSULE BY MOUTH DAILY 1 HOUR BEFORE THE FIRST MEAL OF THE DAY 90 Capsule 1 024 Active Atorvastatin Calcium 10 MG [...] on leg 60 g 5 025 Active Hydrocortisone 2.5 % External CreamIndications: Hemorrhoids, external without complications Apply topically to affected area 3 times a day . To affected area. hemorrhoids 30 g 5 022 2024 Discontinued documented as of this encounter (statuses as of 11/11/2024) Active Problems Problem Noted Date Diagnosed Date [...] as of this encounter (statuses as of 11/11/2024) Resolved Problems Problem Noted Date Diagnosed Date Resolved Date Dementia without behavioral disturbance 10/15/2020 12/04/2021 Overview (07/07/2022): ICD-10 update of inactive term ADVANCE DIRECTIVE INFORMATION 10/10/2009 03/27/2019 Overview (10/10/2009): No, Advance Directive brochure given to patient. Benign neoplasm of colon 10/04/200704/2019 Overview (10/13/2007): hyperplastic reepat colonoscopy in 10 yrs documented as of this encounter (statuses as of 11/11/2024) Immunizations Name Administration Dates Next Due COVID-19 mRNA, LNP-s, No Pre serve, 2-Dose Series ([employer]) 08/05/2021,12/22/2020,12/01/2020 COVID-19, LNP-s, No Preserve , Kenny-sucrose, Ages 12+ ([employer]izer) 01/15/2022 Covid-19, Mrna, Lnp-s, Pf, B ivalent, 30 Mcg, IM, 12 yrs and above (Pfizer) 09/04/2023 H1N1 2008 Influenza, IM 10/27/2009 Pneumococcal Conjugate Vacc, 13 [...] Sign Reading Time Taken Comments Blood Pressure 124/72 11/11/2024 8:44 AM EST Pulse 72 11/11/2024 8:44 AM EST Temperature 36.6 °C (97.8 °F) 11/11/2024 8:44 AM ES T Respiratory Rate 18 11/11/2024 8:44 AM EST Oxygen Saturation - - Inhaled Oxygen Concentration - - Weight 61.2 kg (135 lb) 11/11/2024 8:44 AM EST Height 167.6 cm (5' 6") 11/11/2024 8:44 AM EST Body Mass Index 21.79 11/11/2024 8:44 AM EST documented in this encounter Progress Notes * Ellyn Hills, - 11/11/2024 1:17 PM EST Images from the original note were not included. Subjective Olesya Sherman is a 74 year old female that presents for Re-Check History of Present Illness Olesya Sherman is a 74 year old female with Alzheimer's disease who presents with increased difficulty in managing daily tasks and bowel incontinence. She is accompanied by her caregiver, her . She is experiencing increased difficulty in managing daily tasks, requiring assistance with dressing and changing pull ups/ diapers. There is a decline in her ability to follow complex directions, and her speech has changed since the last visit. Just grunts nonsensical tone, not speaking words (except end of visit I think she said "okay") She is experiencing bowel incontinence, with bowel movements up to three times a day. This is a recent development, and she does not seem aware of the need to use the bathroom. Her caregiver has to clean up feces from the floor and toilet area, suggesting she may be attempting to clean herself. 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 Her diet includes orange juice and chocolate cookies, and her caregiver is trying to manage her intake to prevent loose stools. She is currently on donepezil and memantine for Alzheimer's disease. Her caregiver is unsure if these medications are helping, but notes a loss of function over time. She also takes omeprazole for acid reflux, which does not seem to cause any issues. She has a rash on her right lateral thigh, which her caregiver noticed. It appears to be improving and is possibly related to dry skin. She showers twice a week, which is a struggle due to her dislike of bathing. Her caregiver is considering future living arrangements, including the possibility of moving to an assisted living facility. She is exploring options that would provide the necessary care for her condition. Objective Vitals: 11/11/24 0844 Temp: 97.8 °F (36.6 °C) Pulse: 72 Resp: 18 BP: 124/72 BMI: 21.8 Physical Exam MEASUREMENTS: WT- 35 pounds SKIN: Rash on lower leg, improved, consistent with eczema. General: alert, healthy, and no distress Head: Normocephalic, No masses, lesions, tenderness or abnormalities Eye Exam: PERRLA, extraocular movements intact, conjunctiva are pink and non- injected, sclera clear Neck: supple, no adenopathy, no bruits, thyroid normal size, non-tender, without nodularity Heart: regular rate & rhythm, no murmur, and no gallops Lungs: chest symmetric with normal AP diameter, no chest deformities noted, no chest wall tenderness, lungs clear to auscultation Pulses: carotid=2/4 w/o bruits Extremities: less than 2 second capillary refill, no joint deformities, effusion, or inflammation Skin: light pink rash right lateral thigh, 1cm chest papule: I have reviewed the following results: Results Procedure: Dermatological Photography Description: Photograph of chest lesion taken for dermatology consultation. RADIOLOGY Mammogram: Normal Assessment and Plan Assessment & Plan Alzheimer's Disease Progressive cognitive decline with apraxia and incontinence. Patient is ambulatory and able to follow simple directions. No trouble swallowing. -Continue Donepezil and Memantine. -Consider decreasing Donepezil due to potential side effect of loose stools. -Discussed caregiver support and potential transition to assisted living. Frequent Bowel Movements Patient experiencing frequent bowel movements, up to three times a day, with associated incontinence. -Consider dietary modifications, including reducing juice intake and increasing fiber. -Start Imodium as needed, up to twice a day, to reduce frequency of bowel movements. -Check response and adjust as needed to avoid constipation. Skin Rash on Lower Leg Likely eczema. -Apply topical steroid cream as needed. -Advise shorter, less frequent showers to maintain natural skin oils. Breast Health Recent mammogram normal. -Continue routine screenings as recommended. General Health Maintenance -Continue Omeprazole for acid reflux. -DME order for potential needs related to progressive Alzheimer's disease. Raised chair seat with handles, and adult diapers size medium -Follow-up as needed for ongoing management and support. Alzheimer's disease (HCC) (Primary) - DURABLE MEDICAL EQUIPMENT Need for prophylactic vaccination and inoculation against influenza - INFLUENZA VAC., TRIVALENT, HD, PF, 65 AND ABOVE, 0.5 ML IM (FLUZONE HD) Incomplete defecation - DURABLE MEDICAL EQUIPMENT Eczema, unspecified type - Hydrocortisone 2.5 % External Cream; Apply topically to affected area 3 times a day. To affected area. Rash on leg Caregiver stress Has tried in person and online support groups- not that helpful Full incontinence of feces - Loperamide HCl 2 MG Oral Capsule (Imodium); Take 1 Capsule by mouth 2 times a day as needed for Diarrhea. Wrap-Up Time: I spent a total of 30-39 minutes (exact time 35 mins) on the date of service in preparation, delivery, and documentation of the care provided to Olesya Sherman excluding any time spent in the performance of separately billed services. Text in this note was generated using an ambient documentation service. I discussed the use of a device to record and summarize our discussion today. All persons present during the encounter consented to its use. Ellyn Hills DO documented in this encounter Nursing Notes * Angelique Cramer LPN - 11/11/2024 8:40 AM EST Olesya Sherman presents for 6 month recheck. Medications & HM reviewed. documented in this encounter Plan of Treatment Upcoming Encounters Date Type Department Care Team (Late st Contact Info) Description 01/20/2025 10:30 AM EDT Telemedicine Neurology, [place] [address] [place] [place] [address] Kelly Morgan MD [address] [place] [address] [place] [address] 04/04/2025 2:30 PM EDT Office Visit Rheumatology [facility] [address] [place] [phone] Soco Batres CRNP [facility] [place] [address] 07/10/2025 10:15 AM EDT Office Visit Neurology, [place] [address] [place] [phone] Kelly Morgan MD [address] [place] [address] [place] [id number] Scheduled Procedures Name Priority Associated Diagnoses Date/Ti [...] D LEVEL ONCE IN A LIFETIME-USE SMARTSET# [id number] Completed 03/28/2024, 03/16/2023, 09/25/2022, Additional history exists [...] as of this encounter Visit Diagnoses Diagnosis Alzheimer's disease (HCC)- Primary Alzheimer's disease Need for prophylactic vaccination and inoculation against influenza Incomplete defecation Eczema, unspecified type Caregiver stress Other health problem within the family Full incontinence of feces documented in this encounter Care Teams Amusement Or Recreation Card Checker Relationship Specialty Start Date End Date Ellyn Hills DO [address] [place] [address] PCP - General Family Medicine 07/02/18 documented as of this encounter
[2025-01-14 17:30] LABS: Basophils # (auto) 0.02 K/uL (0.00-0.20); Basophils % (auto) 0.3 %; Eosinophils # (auto) 0.15 K/uL (0.00-0.50); Eosinophils % (auto) 1.9 %; Hematocrit (blood only) 43.6 % (37.0-47.0); Hemoglobin 14.4 g/dl (12.0-16.0); Immature Granulocytes # (auto) 0.02 K/uL (0.01-0.20); Immature Granulocytes % (auto) 0.3 %; Lymphocytes # (auto) 2.72 K/uL (1.20-3.40); Lymphocytes % (auto) 34.1 %; Mean Corpuscular Hemoglobin 31.9 pg (25.0-34.0); Mean Corpuscular Volume 96.5 fL (80.0-100.0); Mean Platelet Volume 10.4 fL (9.4-12.4); Monocytes # (auto) 0.73 K/uL (0.11-0.59); Monocytes % (auto) 9.1 %; Neutrophils # (auto) 4.34 K/uL (1.40-6.50); Neutrophils % (auto) 54.3 %; Platelet Count 243 K/uL (130-400); RDW Coefficient of Variation 12.5 % (11.5-14.5); RDW Standard Deviation 44.6 fL (36.4-46.3); Red Blood Count 4.52 M/uL (4.20-5.40); White Blood Count 7.98 K/ul (4.8-10.8)
[2025-01-14 17:38] LABS: Albumin Globulin Ratio 1.8 (0.9-2); Albumin Level 4.2 gm/dl (3.4-5.0); BUN Creatinine Ratio 15.2 (10-20); Bilirubin,Total 0.6 mg/dl (0.2-1.0); Calcium 9.6 mg/dl (8.6-10.3); Globulin 2.4 gm/dl (2.5-4.0); Potassium 3.9 mmol/L (3.5-5.1); Total Protein 6.6 gm/dl (6.0-8.3)
[2025-01-14] MEDS: SODIUM CHLORIDE 0.9% 1,000 ML IV SCH (17:40)
[2025-01-14 17:45] LABS: Troponin I High Sensitivity 4.7 pg/ml (0-14)
[2025-01-14 17:54] LABS: Thyroid Stimulating Hormone 1.664 uIu/ml (0.300-4.500)
[2025-01-14 18:21] LABS: Appearance Urine Turbid (Clear); Bacteria Urine Automated 1+ (None Seen); Bilirubin Urine Negative (Negative); Blood Urine Negative (Negative); Cast Urine Automated 0-2 /lpf (0-2); Color Urine Yellow; Epithelial Cell Urine Auto 0-2 /hpf (0-2); Glucose Urine UA Negative (Negative); Ketones Urine Negative (Negative); Leukocyte Esterase Urine Trace (Negative); Nitrite Urine Negative (Negative); Protein Urine Negative (Negative); Specific Gravity Urine 1.012 (1.000-1.030); Urobilinogen Urine Negative (Negative); WBC Urine Automated 0-5 /hpf (0-5); pH Urine >= 9.0 (4.5-7.5)
--- NOTE | 2025-01-14 18:33 | XRay Report ---
EXAM: XR chest 1V portable CLINICAL HISTORY: weakness TECHNIQUE: X-ray images of the chest were obtained in 1V portable COMPARISON: No prior studies available for comparison. FINDINGS: Pulmonary Parenchyma: Bluting of both costophrenic angles could be minimal pleural effusion or pleural thickening. Faint opacity at the left lower lobe could be a small consolidation patch Right lower lung zone small nodule Increase in vascular marking otherwise, Lungs are clear bilaterally. No evidence of consolidation, collapse. A suspected small nodular density seen at the left upper lung zone overlying the ribs Heart and Mediastinum: Heart border line size and shape are normal. No mediastinal widening or masses. No hilar or mediastinal lymphadenopathy. Bony Thorax: Bony thorax appears intact without fractures or deformities. Degenerative changes Soft Tissues: Soft tissues overlying the chest wall are unremarkable. Multiple leads overlying the both chest leon IMPRESSION: 1. Blunting of both costophrenic angles could be minimal pleural effusion or pleural thickening. 2. Faint opacity at the left lower lung zone could be a small consolidation patch. 3. Right lower lung zone 1 cm faint small nodule. 4. Increase in vascular marking. Electronically signed by Juan San 01-14-2025 6:32 PM
--- NOTE | 2025-01-14 18:52 | CT Scan Report ---
EXAM: CT Head Without Intravenous Contrast INDICATION: Weakness and confusion. Combative. TECHNIQUE: Axial computed tomography images of the head/brain without intravenous contrast. Sagittal and/or coronal reformats are provided. Sagittal and coronal reformatted images were created and reviewed. This CT exam was performed using one or more of the following dose reduction techniques: automated exposure control, adjustment of the mA and/or kV according to patient size, and/or use of iterative reconstruction technique. COMPARISON: 09/10/2023 FINDINGS: Limitations: None. Brain and extra-axial spaces: There is age appropriate cortical atrophy and chronic ischemic periventricular white matter hypodensity. No acute infarct, hemorrhage or mass noted. Bones/joints: No acute changes. Soft tissues: No significant abnormality noted. Vasculature: No acute abnormality noted. Sinuses: No layering fluid in the visualized portions of the paranasal sinuses. Mastoid air cells: No mastoid effusion. Orbits: No significant abnormality noted. IMPRESSION: Cerebral atrophy. No acute changes. ACT 112: N/A Electronically signed by Idalia De Jesus 01-14-2025 6:51 PM
[2025-01-14] MEDS: cefTRIAXone SODIUM 2,000 MG/50 ML BAG IV STA (20:25)
--- NOTE | 2025-01-14 21:19 | Emergency Department Note ---
Impression & Plan Generalized weakness, Ambulatory dysfunction, Acute UTI (urinary tract infection), Dementia ED Provider Note NAME: YEN MOY AGE: 74 SEX: Female INFORMANT: ED PROVIDER(S): Artie Gilmore MD CHIEF COMPLAINT: Weakness PLAN: Disposition: Admitted Outpatient prescription management: none Referral: None MEDICAL DECISION MAKING: Patient presented because of bilateral leg weakness. Workup was initiated. CT imaging does not show any acute findings. Degenerative changes noted. The patient had unremarkable ECG. CBC and chemistry panels were unremarkable. Cath urinalysis did show bacteria and blood. Chest x-ray noted some mild congestion without significant lobar infiltrate. notes minimal cough present. BioFire testing performed and negative. Patient was treated with a dose of IV Rocephin. Nursing did attempt an ambulatory trial and noted that the patient required 2 person assist and was not stable on her own. Discussed further evaluation management in the hospital with the and he was in agreement. Consultation was made with the [facility], Dr. Hoyt. Patient was evaluated in the ER and admitted for further management Care/management discussed with: assisted living manager Level of care consideration(s): After review of the information above and other included data, I feel the patient requires escalation of care to admission Triage Nursing notes: reviewed and agree them. Vital Signs: reviewed and remarkable for no significant abnormalities Additional History obtained from: Patient's as the patient has significant dementia and has no ability to provide details Chronic Medical/Social Conditions affecting care: Dementia Prior/ Outside/ External records reviewed: none Differential Diagnosis: Infection, dehydration, metabolic abnormality, hypo/hyperglycemia, electrolyte disturbance, anemia, hypoxia, cardiac sources, intracerebral event, toxicologic, neurologic, as well as other pathologies. Diagnostics, independently interpreted by me: ECG: Twelve-lead ECG reveals normal sinus rhythm at 68 bpm. Incomplete right bundle branch block present. Left atrial enlargement present. No ST elevation. Cardiac Monitoring: Cardiac monitoring ordered by me: The patient was placed on continuous cardiac monitoring and observed. It revealed a normal sinus rhythm at 65 beats per minute without ectopy or evidence of dysrhythmia. Medical decision rules: none Imaging studies: Head CT: A noncontrast CT scan of the head was performed and was negative for tumor, fracture, intracranial hemorrhage, or other acute pathology. Chest imaging reveals faint Increased/opacity markings at the left base. HPI: 74 year old Female arrives for evaluation of bilateral leg weakness. Patient has history of significant dementia and has been present and helps with history. He states that they normally go on walks frequently. Tonight the patient was having difficulty ambulating and was very weak in her legs. Patient had no specific complaints. noted no sick contacts. He denied any fever, vomiting, obvious painful issues or other complaints. Patient is chronically incontinent. No trauma. History is limited secondary to the patient's dementia. PAST MEDICAL HISTORY: See Below, dementia PAST SURGICAL HISTORY: See Below, SOCIAL HISTORY: See Below, HOME MEDICATIONS: See Below ALLERGIES: See Below VITALS: See Below PHYSICAL EXAMINATION: GENERAL: Awake, alert, [id number], in no distress HENT: Normocephalic, atraumatic. Oropharynx unremarkable. EYES: Normal conjunctiva. Sclera non-icteric. NECK: Inspection normal. Non-tender. Supple. No nuchal rigidity. FROM. No masses. RESPIRATORY: Clear to auscultation. No wheezes. No rales. Normal respiratory effort. CARDIAC: Normal rate. Normal rhythm. No murmurs. No rubs. Extremities warm and well perfused. Pulses equal. No JVD. GI: Soft, non-distended. No tenderness to palpation. No rebound or guarding. No masses. RECTAL: Deferred. MUSCULOSKELETAL: Atraumatic. Chest examination reveals no tenderness. TThere is no CVA tenderness to palpation. No joint edema. LOWER EXTREMITIES: Calves are equal size bilaterally and non-tender. No edema. No discoloration. NEURO: Very demented sensorium. No focal sensory or motor deficits noted. SKIN: No rash or jaundice noted. PROCEDURES: none CRITICAL CARE: none OBSERVATION NOTE: none Past Med/Surg History Problem List (Updated 01/14/25 @ 21:19 by Artie Gilmore MD) Dementia (Acute) Acute UTI (urinary tract infection) (Acute) Ambulatory dysfunction (Acute) Generalized weakness (Acute) Medical History (Updated 01/14/25 @ 21:19 by Artie Gilmore MD) Alzheimer disease Social History Smoking Status: Never smoker Preferred Language: Georgian Feels Safe at Home: Yes Allergies Allergies Allergy/AdvReac Type Severity Reaction Status Date / Time [id number] Allergy Unknown Uncoded 02/06/04 10:30 Home Meds Home Medications Medication Instructions Recorded Confirmed atorvastatin 10 mg tablet 10 mg PO QAM 09/10/23 01/14/25 donepezil 10 mg tablet 10 mg PO DAILY 09/10/23 01/14/25 memantine 10 mg tablet 10 mg PO BID 09/10/23 01/14/25 omeprazole 20 mg tablet,delayed 20 mg PO DAILY 01/14/25 01/14/25 release Results & Data (ED) Vital Signs Vital Signs - 24 hr 01/14/25 16:29 01/14/25 17:00 01/14/25 17:03 Temperature 36.8 C Temperature Source Oral Pulse Rate 67 68 65 Pulse Rate [Left] Pulse Rhythm Regular Regular Pulse Rhythm [Left] Pulse Strength Normal Pulse Strength [Left] Respiratory Rate 20 20 Respiratory Effort / Characteristics Non-Labored Respiratory Depth Normal Respiratory Pattern Regular Blood Pressure 144/72 H Blood Pressure [Right Arm] Blood Pressure Mean 96 Blood Pressure Mean [Right Arm] Blood Pressure Position Lying Blood Pressure Position [Right Arm] Pulse Oximetry 94 94 Oxygen Delivery Method Room Air Room Air Sepsis Recent Fever Within 48 Hours No Sepsis New/Unexplained Change in Mental Status No Sepsis Action Taken by Nursing No Action Required 01/14/25 17:08 01/14/25 20:52 01/15/25 00:23 Temperature 36.8 C Temperature Source Oral Pulse Rate 79 65 Pulse Rate [Left] 65 Pulse Rhythm Pulse Rhythm [Left] Regular Pulse Strength Pulse Strength [Left] Normal Respiratory Rate 20 17 Respiratory Effort / Characteristics Non-Labored Respiratory Depth Normal Respiratory Pattern Regular Blood Pressure 155/71 H Blood Pressure [Right Arm] 125/73 Blood Pressure Mean Blood Pressure Mean [Right Arm] 90 Blood Pressure Position Blood Pressure Position [Right Arm] Lying Pulse Oximetry 94 95 Oxygen Delivery Method Room Air Room Air Sepsis Recent Fever Within 48 Hours Sepsis New/Unexplained Change in Mental Status Sepsis Action Taken by Nursing Laboratory Data 01/14/25 16:47 01/14/25 16:47 Lab Results 01/14/25 01/14/25 01/14/25 Range/Units 16:47 17:46 22:18 WBC 7.98 (4.8-10.8) K/ul RBC 4.52 (4.20-5.40) M/uL Hgb 14.4 (12.0-16.0) g/dl Hct 43.6 (37.0-47.0) % MCV 96.5 (80.0-100.0) fL MCH 31.9 (25.0-34.0) pg MCHC 33.0 (32.0-36.0) g/dL RDW Std Deviation 44.6 (36.4-46.3) fL RDW Coeff of Rolando 12.5 (11.5-14.5) % Plt Count 243 (130-400) K/uL MPV 10.4 (9.4-12.4) fL Immature Gran % (Auto) 0.3 % Neut % (Auto) 54.3 % Lymph % (Auto) 34.1 % [place] % (Auto) 9.1 % Eos % (Auto) 1.9 % Baso % (Auto) 0.3 % Neut # (Auto) 4.34 (1.40-6.50) K/uL Lymph # (Auto) 2.72 (1.20-3.40) K/uL [place] # (Auto) 0.73 H (0.11-0.59) K/uL Eos # (Auto) 0.15 (0.00-0.50) K/uL Baso # (Auto) 0.02 (0.00-0.20) K/uL Immature Gran # (Auto) 0.02 (0.01-0.20) K/uL Sodium 141 (136-145) mmol/L Potassium 3.9 (3.5-5.1) mmol/L Chloride 104 (98-107) mmol/L Carbon Dioxide 30 (21-32) mmol/L Anion Gap 7 (3-11) BUN 12 (6-23) mg/dl Creatinine 0.79 (0.6-1.2) mg/dl Est Cr Clr Drug Dosing 63.0 ml/min eGFR 78.44 BUN/Creatinine Ratio 15.2 (10-20) Glucose 95 (70-99(Fasting)) mg/dl Calcium 9.6 (8.6-10.3) mg/dl Magnesium 2.0 (1.7-2.4) mg/dl Total Bilirubin 0.6 (0.2-1.0) mg/dl AST 27 (13-39) U/L ALT 15 (7-52) U/L Alkaline Phosphatase 67 (34-104) U/L Troponin I High Sens 4.7 (0-14) pg/ml Total Protein 6.6 (6.0-8.3) gm/dl Albumin 4.2 (3.4-5.0) gm/dl Globulin 2.4 L (2.5-4.0) gm/dl Albumin/Globulin Ratio 1.8 (0.9-2) TSH 1.664 (0.300-4.500) uIu/ml Urine Color Yellow Urine Appearance Turbid A (Clear) Urine pH >= 9.0 H (4.5-7.5) Ur Specific [place] 1.012 (1.000-1.030) Urine Protein Negative (Negative) Urine Glucose (UA) Negative (Negative) Urine Ketones Negative (Negative) Urine Blood Negative (Negative) Urine Nitrite Negative (Negative) Urine Bilirubin Negative (Negative) Urine Urobilinogen Negative (Negative) Ur Leukocyte Esterase Trace H (Negative) Urine WBC (Auto) 0-5 (0-5) /hpf Urine RBC (Auto) 3-5 H (0-2) /hpf U Hyaline Cast (Auto) 0-2 (0-2) /lpf U Epithel Cells (Auto) 0-2 (0-2) /hpf Urine Bacteria (Auto) 1+ H (None Seen) Adenovirus (PCR) Not Detected (NotDetected) B. pertussis DNA (PCR) Not Detected (NotDetected) B.parapertussis DNA PCR Not Detected (NotDetected) C. pneumoniae DNA (PCR) Not Detected (NotDetected) Coronavirus OC43 (PCR) Not Detected (NotDetected) Coronavirus HKU1 (PCR) Not Detected (NotDetected) Coronavirus 229E (PCR) Not Detected (NotDetected) SARS-CoV-2 (PCR) Not Detected (NotDetected) Coronavirus NL63 (PCR) Not Detected (NotDetected) Human Metapneumovir PCR Not Detected (NotDetected) Influenza Type A (PCR) Not Detected (NotDetected) Influenza Type B (PCR) Not Detected (NotDetected) M. pneumoniae (PCR) Not Detected (NotDetected) Parainfluenza 1 (PCR) Not Detected (NotDetected) Parainfluenza 2 (PCR) Not Detected (NotDetected) Parainfluenza 3 (PCR) Not Detected (NotDetected) Parainfluenza 4 (PCR) Not Detected (NotDetected) RSV (PCR) Not Detected (NotDetected) Entero/Rhino (PCR) Not Detected (NotDetected) Administered Medications Sodium Chloride (Nss) 1,000 mls @ 125 mls/hr IV .Q8H GENEVA Stop: 01/15/25 16:59 Last Admin: 01/14/25 17:40 Dose: 125 mls/hr Documented By: JESÚS Discontinued Medications Ceftriaxone Sodium (Rocephin) 2,000 mg in 50 mls @ 100 mls/hr IV NOW STA Stop: 01/14/25 20:27 Last Infusion: 01/14/25 21:00 Dose: Infused Documented By: Admin: 01/14/25 20:25 Dose: 100 mls/hr Documented By: MIK Olanzapine (Olanzapine 10 Mg/2.1 Ml Sdv) 2.5 mg IM NOW STA Stop: 01/14/25 21:12 Last Admin: 01/14/25 21:47 Dose: 2.5 mg Documented By: MIK Imaging Data Radiologist's Impression: Chest X-Ray 01/14/25 16:50 EXAM: XR chest 1V portable CLINICAL HISTORY: weakness TECHNIQUE: X-ray images of the chest were obtained in 1V portable COMPARISON: No prior studies available for comparison. FINDINGS: Pulmonary Parenchyma: Bluting of both costophrenic angles could be minimal pleural effusion or pleural thickening. Faint opacity at the left lower lobe could be a small consolidation patch Right lower lung zone small nodule Increase in vascular marking otherwise, Lungs are clear bilaterally. No evidence of consolidation, collapse. A suspected small nodular density seen at the left upper lung zone overlying the ribs Heart and Mediastinum: Heart border line size and shape are normal. No mediastinal widening or masses. No hilar or mediastinal lymphadenopathy. Bony Thorax: Bony thorax appears intact without fractures or deformities. Degenerative changes Soft Tissues: Soft tissues overlying the chest wall are unremarkable. Multiple leads overlying the both chest leon IMPRESSION: 1. Blunting of both costophrenic angles could be minimal pleural effusion or pleural thickening. 2. Faint opacity at the left lower lung zone could be a small consolidation patch. 3. Right lower lung zone 1 cm faint small nodule. 4. Increase in vascular marking. Electronically signed by Juan San 01-14-2025 6:[address] 01/14/25 16:51 EXAM: CT Head Without Intravenous Contrast INDICATION: Weakness and confusion. Combative. TECHNIQUE: Axial computed tomography images of the head/brain without intravenous contrast. Sagittal and/or coronal reformats are provided. Sagittal and coronal reformatted images were created and reviewed. This CT exam was performed using one or more of the following dose reduction techniques: automated exposure control, adjustment of the mA and/or kV according to patient size, and/or use of iterative reconstruction technique. COMPARISON: 09/10/2023 FINDINGS: Limitations: None. Brain and extra-axial spaces: There is age appropriate cortical atrophy and chronic ischemic periventricular white matter hypodensity. No acute infarct, hemorrhage or mass noted. Bones/joints: No acute changes. Soft tissues: No significant abnormality noted. Vasculature: No acute abnormality noted. Sinuses: No layering fluid in the visualized portions of the paranasal sinuses. Mastoid air cells: No mastoid effusion. Orbits: No significant abnormality noted. IMPRESSION: Cerebral atrophy. No acute changes. ACT 112: N/A Electronically signed by Idalia De Jesus 01-14-2025 6:51 PM Discharge Plan Visit Data Chief Complaint: Leg Weakness, Bilateral Stated Complaint: WEAKNESS ED Provider: Artie Gilmore Discharge Problem: Generalized weakness, Ambulatory dysfunction, Acute UTI (urinary tract infection), Dementia Patient Disposition: Admitted As Inpatient Discharge Instructions Interventions: ED Discharge Assessment Last Done: 01/15/25 00:23 Forms Stand Alone Forms: My [facility] [employer] Prescriptions Prescriptions: No Action atorvastatin 10 mg tablet 10 mg PO QAM donepezil 10 mg tablet 10 mg PO DAILY memantine 10 mg tablet 10 mg PO BID omeprazole 20 mg Tablet,Delayed Release (Dr/Ec) 20 mg PO DAILY Referrals Referrals: Ellyn Hills DO [Primary Care Provider] -
--- NOTE | 2025-01-14 21:21 | History & Physical Report ---
Date of Service January 14, 2025 Assessment & Plan (1) Ambulatory dysfunction: Plan: 74-year-old female with past medical history significant for incontinence of feces, osteoporosis, osteoarthritis of right hip, moderate early onset Alzheimer's dementia with anxiety, mild cognitive impairment, history of fall presents with weakness and ambulatory dysfunction. says they went to [place] and walked around the pool and after that they went to [employer]. And patient started to have some trouble initiating walking and later she was having difficulty ambulating and her knees giving away and has to put in a wheelchair and was brought to the hospital. Patient is restless. Could not get a history from the patient. As per patient currently speak only few words. But she knows her name and knows when she is in the house as per the . No complaints of pain. No fevers. No nausea. Appetite is down. Can eat regular food. Lately patient having frequent incontinence of stool and urine as per the . Currently hemodynamics are okay. As per neurology notes patient has late moderate/early severe dementia probable Alzheimer's disease with a language predominance. And she needs help with ADLs and assistance including bathing, dressing and feeding. Could not test anymore because of profound aphasia. Mild EPS with hunched posture. And shuffling steps. is the primary caregiver. Ambulatory dysfunction Weakness Possible UTI,Possible pneumonia on chest x-ray Will follow CT chest. Will follow urine cultures Will follow respiratory [employer] Gentle fluids Rocephin And doxycycline PT OT when stable Moderate/early severe dementia probable Alzheimer's disease with language predominance Continue home donezepil and memantine Zyprexa as needed for agitation Hyperlipidemia On statin GERD on omeprazole DVT prophylaxis Lovenox Disposition Medical floor CODE STATUS full code as per discussion with History of Present Illness Chief Complaint: Weakness, UTI Primary Care Provider: Ellyn Hills DO 74-year-old female with past medical history significant for incontinence of feces, osteoporosis, osteoarthritis of right hip, moderate early onset Alzheimer's dementia with anxiety, mild cognitive impairment, history of fall presents with weakness and ambulatory dysfunction. says they went to [place] and walked around the pool and after that they went to [employer]. And patient started to have some trouble initiating walking and later she was having difficulty ambulating and her knees giving away and has to put in a wheelchair and was brought to the hospital. Patient is restless. Could not get a history from the patient. As per patient currently speak only few words. But she knows her name and knows when she is in the house as per the . No complaints of pain. No fevers. No nausea. Appetite is down. Can eat regular food. Lately patient having frequent incontinence of stool and urine as per the . Currently hemodynamics are okay. As per neurology notes patient has late moderate/early severe dementia probable Alzheimer's disease with a language predominance. And she needs help with ADLs and assistance including bathing, dressing and feeding. Could not test anymore because of profound aphasia. Mild EPS with hunched posture. And shuffling steps. is the primary caregiver. Past medical history. As mentioned above Past surgical history. . Colonoscopy. Dental surgery. Myomectomy. Adhesive capsulitis release. Social history. . Quit smoking 1984. Smokes 0.5 pack a day for 15 years. Alcohol glass of wine daily as per nooked. No drug use. Family history. Son has asthma. Uncle has asthma. Maternal aunt had breast cancer. Paternal aunt had breast cancer. Mother had breast cancer at the age of 47. Father had MS. Allergies Allergy/AdvReac Type Severity Reaction Status Date / Time [id number] Allergy Unknown Uncoded 02/06/04 10:30 Home Medications Medication Instructions Recorded Confirmed Type atorvastatin 10 mg tablet 10 mg PO QAM 09/10/23 01/14/25 History donepezil 10 mg tablet 10 mg PO DAILY 09/10/23 01/14/25 History memantine 10 mg tablet 10 mg PO BID 09/10/23 01/14/25 History omeprazole 20 mg tablet,delayed 20 mg PO DAILY 01/14/25 01/14/25 History release Past Med/Surg History Problem List (Updated 01/15/25 @ 00:58 by Background Daemon) Dementia (Acute) Acute UTI (urinary tract infection) (Acute) Ambulatory dysfunction (Acute) Generalized weakness (Acute) Medical History (Updated 01/15/25 @ 00:58 by Background Daemon) Alzheimer disease Social History Smoking Status: Never smoker Second Hand Exposure: No; Do You Dip or Chew Tobacco: No; Hx Alcohol Use: No Hx Substance Use: No Preferred Language: Mohawk Communication Ability: Impaired Communication Ability Comment: pt mostly nonverbal due to dementia Triage Rn Required: No Beliefs That Will Affect Care: None Current Living Situation: Spouse Feels Safe at Home: Yes Safety Concerns: Feels Safe At This Time Assistive Devices: Glasses Review of Systems Review of Systems: Unobtainable due to cognitive status Physical Exam Physical Exam: General- Restless. Head- atraumatic Neck- supple, no JVD. Lungs- clear to auscultation no wheezing or crackles Heart- regular rhythm; no murmur, no gallop. Abdomen- normal bowel sounds, soft, nontender, no distension Extremities- no pretibial edema, no erythema seen Neuro- Restless,, Not able to answer questions no facial palsy; moves extremities Results & Data Results & Data Vital Signs (Past 12 Hours) Vital Signs Temp Pulse Pulse Resp BP BP Pulse Ox 01/14/25 20:52 79 01/14/25 17:08 36.8 C 65 20 125/73 94 01/14/25 17:03 65 20 94 01/14/25 17:00 68 01/14/25 16:29 36.8 C 67 20 144/72 H 94 O2 Del Method 01/14/25 20:52 01/14/25 17:08 Room Air 01/14/25 17:03 Room Air 01/14/25 17:00 01/14/25 16:29 Room Air Diagnostic Findings Laboratory Results WBC 7.98 K/ul (4.8-10.8) 01/14/25 16:47 RBC 4.52 M/uL (4.20-5.40) 01/14/25 16:47 Hgb 14.4 g/dl (12.0-16.0) 01/14/25 16:47 Hct 43.6 % (37.0-47.0) 01/14/25 16:47 MCV 96.5 fL (80.0-100.0) 01/14/25 16:47 MCH 31.9 pg (25.0-34.0) 01/14/25 16:47 MCHC 33.0 g/dL (32.0-36.0) 01/14/25 16:47 RDW Std Deviation 44.6 fL (36.4-46.3) 01/14/25 16:47 RDW Coeff of Rolando 12.5 % (11.5-14.5) 01/14/25 16:47 Plt Count 243 K/uL (130-400) 01/14/25 16:47 MPV 10.4 fL (9.4-12.4) 01/14/25 16:47 Immature Gran % (Auto) 0.3 % 01/14/25 16:47 Neut % (Auto) 54.3 % 01/14/25 16:47 Lymph % (Auto) 34.1 % 01/14/25 16:47 [place] % (Auto) 9.1 % 01/14/25 16:47 Eos % (Auto) 1.9 % 01/14/25 16:47 Baso % (Auto) 0.3 % 01/14/25 16:47 Neut # (Auto) 4.34 K/uL (1.40-6.50) 01/14/25 16:47 Lymph # (Auto) 2.72 K/uL (1.20-3.40) 01/14/25 16:47 [place] # (Auto) 0.73 K/uL (0.11-0.59) H 01/14/25 16:47 Eos # (Auto) 0.15 K/uL (0.00-0.50) 01/14/25 16:47 Baso # (Auto) 0.02 K/uL (0.00-0.20) 01/14/25 16:47 Immature Gran # (Auto) 0.02 K/uL (0.01-0.20) 01/14/25 16:47 Sodium 141 mmol/L (136-145) 01/14/25 16:47 Potassium 3.9 mmol/L (3.5-5.1) 01/14/25 16:47 Chloride 104 mmol/L (98-107) 01/14/25 16:47 Carbon Dioxide 30 mmol/L (21-32) 01/14/25 16:47 Anion Gap 7 (3-11) 01/14/25 16:47 BUN 12 mg/dl (6-23) 01/14/25 16:47 Creatinine 0.79 mg/dl (0.6-1.2) 01/14/25 16:47 Est Cr Clr Drug Dosing 63.0 ml/min 01/14/25 16:47 eGFR 78.44 01/14/25 16:47 BUN/Creatinine Ratio 15.2 (10-20) 01/14/25 16:47 Glucose 95 mg/dl (70-99(Fasting)) 01/14/25 16:47 Calcium 9.6 mg/dl (8.6-10.3) 01/14/25 16:47 Magnesium 2.0 mg/dl (1.7-2.4) 01/14/25 16:47 Total Bilirubin 0.6 mg/dl (0.2-1.0) 01/14/25 16:47 AST 27 U/L (13-39) 01/14/25 16:47 ALT 15 U/L (7-52) 01/14/25 16:47 Alkaline Phosphatase 67 U/L (34-104) 01/14/25 16:47 Troponin I High Sens 4.7 pg/ml (0-14) 01/14/25 16:47 Total Protein 6.6 gm/dl (6.0-8.3) 01/14/25 16:47 Albumin 4.2 gm/dl (3.4-5.0) 01/14/25 16:47 Globulin 2.4 gm/dl (2.5-4.0) L 01/14/25 16:47 Albumin/Globulin Ratio 1.8 (0.9-2) 01/14/25 16:47 TSH 1.664 uIu/ml (0.300-4.500) 01/14/25 16:47 Urine Color Yellow 01/14/25 17:46 Urine Appearance Turbid (Clear) A 01/14/25 17:46 Urine pH >= 9.0 (4.5-7.5) H 01/14/25 17:46 Ur Specific [place] 1.012 (1.000-1.030) 01/14/25 17:46 Urine Protein Negative (Negative) 01/14/25 17:46 Urine Glucose (UA) Negative (Negative) 01/14/25 17:46 Urine Ketones Negative (Negative) 01/14/25 17:46 Urine Blood Negative (Negative) 01/14/25 17:46 Urine Nitrite Negative (Negative) 01/14/25 17:46 Urine Bilirubin Negative (Negative) 01/14/25 17:46 Urine Urobilinogen Negative (Negative) 01/14/25 17:46 Ur Leukocyte Esterase Trace (Negative) H 01/14/25 17:46 Urine WBC (Auto) 0-5 /hpf (0-5) 01/14/25 17:46 Urine RBC (Auto) 3-5 /hpf (0-2) H 01/14/25 17:46 U Hyaline Cast (Auto) 0-2 /lpf (0-2) 01/14/25 17:46 U Epithel Cells (Auto) 0-2 /hpf (0-2) 01/14/25 17:46 Urine Bacteria (Auto) 1+ (None Seen) H 01/14/25 17:46 Impressions Chest X-Ray 01/14/25 16:50 EXAM: XR chest 1V portable CLINICAL HISTORY: weakness TECHNIQUE: X-ray images of the chest were obtained in 1V portable COMPARISON: No prior studies available for comparison. FINDINGS: Pulmonary Parenchyma: Bluting of both costophrenic angles could be minimal pleural effusion or pleural thickening. Faint opacity at the left lower lobe could be a small consolidation patch Right lower lung zone small nodule Increase in vascular marking otherwise, Lungs are clear bilaterally. No evidence of consolidation, collapse. A suspected small nodular density seen at the left upper lung zone overlying the ribs Heart and Mediastinum: Heart border line size and shape are normal. No mediastinal widening or masses. No hilar or mediastinal lymphadenopathy. Bony Thorax: Bony thorax appears intact without fractures or deformities. Degenerative changes Soft Tissues: Soft tissues overlying the chest wall are unremarkable. Multiple leads overlying the both chest leon IMPRESSION: 1. Blunting of both costophrenic angles could be minimal pleural effusion or pleural thickening. 2. Faint opacity at the left lower lung zone could be a small consolidation patch. 3. Right lower lung zone 1 cm faint small nodule. 4. Increase in vascular marking. Electronically signed by Juan San 01-14-2025 6:[address] 01/14/25 16:51 EXAM: CT Head Without Intravenous Contrast INDICATION: Weakness and confusion. Combative. TECHNIQUE: Axial computed tomography images of the head/brain without intravenous contrast. Sagittal and/or coronal reformats are provided. Sagittal and coronal reformatted images were created and reviewed. This CT exam was performed using one or more of the following dose reduction techniques: automated exposure control, adjustment of the mA and/or kV according to patient size, and/or use of iterative reconstruction technique. COMPARISON: 09/10/2023 FINDINGS: Limitations: None. Brain and extra-axial spaces: There is age appropriate cortical atrophy and chronic ischemic periventricular white matter hypodensity. No acute infarct, hemorrhage or mass noted. Bones/joints: No acute changes. Soft tissues: No significant abnormality noted. Vasculature: No acute abnormality noted. Sinuses: No layering fluid in the visualized portions of the paranasal sinuses. Mastoid air cells: No mastoid effusion. Orbits: No significant abnormality noted. IMPRESSION: Cerebral atrophy. No acute changes. ACT 112: N/A Electronically signed by Idalia De Jesus 01-14-2025 6:51 PM ECG Additional Comments: ECG. Normal sinus rhythm with a rate of 68. Possible left atrial enlargement. Incomplete right bundle branch block. QTc 427. Code Status & VTE Plan VTE Prophylaxis Plan VTE Prophylaxis will be ordered: Yes
[2025-01-14] MEDS: OLANZapine 10 MG/2.1 ML SDV IM STA (21:47)
[2025-01-14 23:50] LABS: Adenovirus PCR Not Detected (NotDetected); Bordetella parapertussis PCR Not Detected (NotDetected); Bordetella pertussis PCR Not Detected (NotDetected); Chlamydia pneumoniae PCR Not Detected (NotDetected); Coronavirus 229E PCR Not Detected (NotDetected); Coronavirus CoV-2 (COVID19)PCR Not Detected (NotDetected); Coronavirus HKU1 PCR Not Detected (NotDetected); Coronavirus NL63 PCR Not Detected (NotDetected); Coronavirus OC43PCR Not Detected (NotDetected); Human Metapneumovirus PCR Not Detected (NotDetected); Influenza A PCR Not Detected (NotDetected); Influenza B PCR Not Detected (NotDetected); Mycoplasma pneumoniae PCR Not Detected (NotDetected); Parainfluenza Virus 1 PCR Not Detected (NotDetected); Parainfluenza Virus 2 PCR Not Detected (NotDetected); Parainfluenza Virus 3 PCR Not Detected (NotDetected); Parainfluenza Virus 4 PCR Not Detected (NotDetected); Respiratory Syncytial VirusPCR Not Detected (NotDetected); Rhinovirus/Enterovirus PCR Not Detected (NotDetected)
[2025-01-15] MEDS ORDERED: ACETAMINOPHEN 325 MG TAB PO PRN (00:59)
[2025-01-15] MEDS ORDERED: POLYETHYLENE (MIRALAX) 17 GM PACK PO PRN (00:59)
[2025-01-15] MEDS ORDERED: OLANZapine 10 MG/2.1 ML SDV IM PRN (00:59)
[2025-01-15] MEDS: OLANZapine 10 MG/2.1 ML SDV IM STA (01:08)
[2025-01-15] MEDS: SODIUM CHLORIDE 0.9% 1,000 ML IV SCH (01:26)
[2025-01-15] MEDS: ENOXAPARIN INJ 40 MG/0.4 ML SYR SQ SCH (01:39)
[2025-01-15] MEDS: DOXYCYCLINE HYCLATE 100 MG in DEXTROSE 5% MINI-B 100 ML IV SCH (01:39)
[2025-01-15] MEDS: LORazepam 2 MG/1 ML VIAL IV STA (01:56)
--- NOTE | 2025-01-15 09:32 | Electrocardiogram Report ---
Test Reason : Blood Pressure : */* mmHG Vent. Rate : 68 BPM Atrial Rate : 68 BPM P-R Int : 198 ms QRS Dur : 94 ms QT Int : 402 ms P-R-T Axes : 78 64 64 degrees QTcB Int : 427 ms Normal sinus rhythm Possible Left atrial enlargement Incomplete right bundle branch block Borderline ECG When compared with ECG of 10-Sep-2023 11:58, Minimal criteria for Anterior infarct are no longer Present Confirmed by Diego Ureña ([id number]) on 01/15/2025 9:32:33 AM Referred By: REFERRED SELF Confirmed By: Diego Ureña
[2025-01-15] MEDS: PANTOprazole 40 MG TAB PO SCH (10:30)
[2025-01-15] MEDS: MEMANTINE HCL 10 MG TAB PO SCH (10:30)
[2025-01-15] MEDS: DONEPEZIL HCL 10 MG TAB PO SCH (10:31)
[2025-01-15] MEDS: ATORVASTATIN 10 MG TAB PO SCH (10:31)
--- NOTE | 2025-01-15 10:45 | CT Scan Report ---
CT chest diagnostic wo con CT DOSE: 337.51 mGy.cm CLINICAL HISTORY: possible consolidation on cxr. TECHNIQUE: Multiaxial CT images of the chest were performed without contrast. A dose lowering techni que was utilized adhering to the principles of ALARA. COMPARISON STUDY: Chest x-ray yesterday FINDINGS: There is mild dependent atelectasis in the lung bases. There is no other pulmonary consolid ation or pleural effusion. No pneumothorax. There is a calcified pulmonary granuloma at the right low er lobe. There is a 1.5 cm posterior left thyroid lobe nodule. No enlarged adenopathy. No pericardial effusion. There are mild coronary artery calcifications. There is mild chronic-appearing height loss at the T5 and T6 vertebral bodies. No acute osseous findings seen. There are mild thoracic spine deg enerative changes. IMPRESSION: 1. Mild dependent atelectasis in the lung bases. No pneumonia is seen otherwise. 2. Otherwise as described. ACT 112: Negative or not required by law. Electronically signed by: Joel Germain M.D. 01/15/2025 10:43 AM
[2025-01-15 12:58] LABS: Basophils # (auto) 0.02 K/uL (0.00-0.20); Basophils % (auto) 0.3 %; Eosinophils # (auto) 0.09 K/uL (0.00-0.50); Eosinophils % (auto) 1.4 %; Hematocrit (blood only) 43.4 % (37.0-47.0); Immature Granulocytes # (auto) 0.02 K/uL (0.01-0.20); Immature Granulocytes % (auto) 0.3 %; Lymphocytes # (auto) 2.18 K/uL (1.20-3.40); Lymphocytes % (auto) 32.9 %; Mean Corpuscular Hemoglobin 31.7 pg (25.0-34.0); Mean Corpuscular Hgb Conc 32.3 g/dL (32.0-36.0); Mean Corpuscular Volume 98.2 fL (80.0-100.0); Mean Platelet Volume 10.1 fL (9.4-12.4); Monocytes # (auto) 0.67 K/uL (0.11-0.59); Monocytes % (auto) 10.1 %; Neutrophils # (auto) 3.64 K/uL (1.40-6.50); Platelet Count 223 K/uL (130-400); RDW Coefficient of Variation 12.6 % (11.5-14.5); RDW Standard Deviation 46.3 fL (36.4-46.3); Red Blood Count 4.42 M/uL (4.20-5.40); White Blood Count 6.62 K/ul (4.8-10.8)
[2025-01-15 13:13] LABS: BUN Creatinine Ratio 11.7 (10-20); Calcium 8.1 mg/dl (8.6-10.3); Creatinine Clr Calc Pharmacy 64.7 ml/min; Magnesium 2.1 mg/dl (1.7-2.4); Potassium 4.3 mmol/L (3.5-5.1)
--- NOTE | 2025-01-15 13:28 | Hospitalist Progress Note ---
Date of Service January 15, 2025 Assessment & Plan (1) Ambulatory dysfunction: Plan: 74-year-old female with past medical history significant for incontinence of feces, osteoporosis, osteoarthritis of right hip, moderate early onset Alzheimer's dementia with anxiety, mild cognitive impairment, history of fall presents with weakness and ambulatory dysfunction. says they went to [place] and walked around the pool and after that they went to [place]. And patient started to have some trouble initiating walking and later she was having difficulty ambulating and her knees giving away and has to put in a wheelchair and was brought to the hospital. Patient is restless. Could not get a history from the patient. As per patient currently speak only few words. But she knows her name and knows when she is in the house as per the . No complaints of pain. No fevers. No nausea. Appetite is down. Can eat regular food. Lately patient having frequent incontinence of stool and urine as per the . Currently hemodynamics are okay. As per neurology notes patient has late moderate/early severe dementia probable Alzheimer's disease with a language predominance. And she needs help with ADLs and assistance including bathing, dressing and feeding. Could not test anymore because of profound aphasia. Mild EPS with hunched posture. And shuffling steps. is the primary caregiver. Ambulatory dysfunction Weakness Possible UTI,Possible pneumonia on chest x-ray Will follow CT chest. Will follow urine cultures Will follow respiratory [employer] Gentle fluids Rocephin And doxycycline PT OT when stable No signs of infection Has been getting intravenous ceftriaxone and doxycycline CT of the chest has been negative for any pneumonia Urine culture has been pending Will continue antibiotic for now and await further culture results Severe agitation Moderate/early severe dementia probable Alzheimer's disease with language predominance Continue home donezepil and memantine Zyprexa as needed for agitation She required 5 mg of IM Zyprexa and also 0.25 mg Ativan around 1 AM due to prolonged agitation She has been sleeping since this morning and has not been responding to any vocal commands Remains hemodynamically stable Hyperlipidemia On statin GERD on omeprazole DVT prophylaxis Lovenox Disposition Medical floor CODE STATUS full code as per discussion with Discussed with the in detail Admission and Anticipated Discharge Date Admission Date: January 14, 2025 Subjective 01/15/2025 The patient was seen and examined in medical floor in presence of the She has history of dementia and always very much agitated about 8 hours prior to coming to the floor She received total of 5 mg Zyprexa and also 0.25 mg IV of Ativan to control agitation and aggressiveness She has been sleeping since this morning and has not been answering or responding to any commands but remains hemodynamically stable Review of Systems Review of Systems: Unobtainable due to cognitive status Physical Exam Physical Exam: Lying in bed nonresponsive to verbal stimuli but hemodynamically stable Constitutional: well developed, well nourished and + ill appearing Eyes: closed ENMT: external ear and nose normal, oropharynx normal Respiratory: no respiratory distress Auscultation: lungs clear to auscultation bilaterally Cardiovascular: Rate/Rhythm: regular rate, regular rhythm and + bradycardic Heart Sounds: normal S1 and normal S2; no murmur Extremities: no edema Gastrointestinal (Abdomen): Inspection/Auscultation: normal bowel sounds; abdomen not distended Percussion/Palpation: abdomen soft; abdomen nontender Musculoskeletal: No acute arthritis involving any of the joint Neurologic: Remains asleep and has not been responding to vocal commands Lymphatic: no cervical or axillary lymphadenopathy Results & Data Results & Data Vital Signs (Past 12 Hours) Vital Signs Temp Pulse Resp BP Pulse Ox O2 Del Method 01/15/25 07:45 Room Air 01/15/25 07:34 36.6 C 58 L 16 130/67 96 Room Air Laboratory Results Short CBC 01/14/25 01/15/25 Range/Units 16:47 12:41 WBC 7.98 6.62 (4.8-10.8) K/ul Hgb 14.4 14.0 (12.0-16.0) g/dl Hct 43.6 43.4 (37.0-47.0) % Plt Count 243 223 (130-400) K/uL BMP 01/14/25 01/15/25 16:47 12:41 Sodium 141 143 Potassium 3.9 4.3 Chloride 104 112 H Carbon Dioxide 30 27 BUN 12 9 Creatinine 0.79 0.77 Glucose 95 94 Calcium 9.6 8.1 L Liver Function 01/14/25 Range/Units 16:47 Total Bilirubin 0.6 (0.2-1.0) mg/dl AST 27 (13-39) U/L ALT 15 (7-52) U/L Alkaline Phosphatase 67 (34-104) U/L Albumin 4.2 (3.4-5.0) gm/dl Urine 01/14/25 Range/Units 17:46 Urine Color Yellow Urine Appearance Turbid A (Clear) Urine pH >= 9.0 H (4.5-7.5) Ur Specific [place] 1.012 (1.000-1.030) Urine Protein Negative (Negative) Urine Glucose (UA) Negative (Negative) Medications Administered Current Inpatient Medications Acetaminophen (Acetaminophen 325 Mg Tab) 650 mg PO Q4H PRN PRN Reason: pain/fever Stop: 02/14/25 00:58 Atorvastatin Calcium (Atorvastatin 10 Mg Tab) 10 mg PO QAM GENEVA Stop: 02/14/25 08:59 Last Admin: 01/15/25 10:31 Dose: 10 mg Donepezil HCl (Donepezil Hcl 10 Mg Tab) 10 mg PO DAILY GENEVA Stop: 02/14/25 08:59 Last Admin: 01/15/25 10:31 Dose: 10 mg Enoxaparin Sodium (Enoxaparin Inj 40 Mg/0.4 Ml Syr) 40 mg SQ PM GENEVA Stop: 02/14/25 00:58 Last Admin: 01/15/25 01:39 Dose: 40 mg Sodium Chloride (Nss) 1,000 mls @ 80 mls/hr IV .[id number] [facility] Stop: 01/15/25 13:28 Last Admin: 01/15/25 01:26 Dose: 80 mls/hr Ceftriaxone Sodium (Rocephin) 2,000 mg in 50 mls @ 100 mls/hr IV Q24H GENEVA Stop: 01/20/25 19:59 Doxycycline Hyclate 100 mg/ (Dextrose) 100 mls @ 50 mls/hr IV Q12H GENEVA Stop: 01/20/25 01:59 Last Infusion: 01/15/25 03:44 Dose: Infused Memantine (Memantine Hcl 10 Mg Tab) 10 mg PO BID GENEVA Stop: 02/14/25 08:59 Last Admin: 01/15/25 10:30 Dose: 10 mg Olanzapine (Olanzapine 10 Mg/2.1 Ml Sdv) 2.5 mg IM TID PRN PRN Reason: Agitation Stop: 02/14/25 00:58 Pantoprazole Sodium (Pantoprazole 40 Mg Tab) 40 mg PO DAILY GENEVA Stop: 02/14/25 08:59 Last Admin: 01/15/25 10:30 Dose: 40 mg Polyethylene Glycol (Polyethylene (Miralax) 17 Gm Pack) 17 gm PO DAILY PRN PRN Reason: Constipation Stop: 02/14/25 00:58
[2025-01-15] MEDS: cefTRIAXone SODIUM 2,000 MG/50 ML BAG IV SCH (20:16)
[2025-01-16 08:22] LABS: Basophils # (auto) 0.03 K/uL (0.00-0.20); Basophils % (auto) 0.4 %; Eosinophils # (auto) 0.28 K/uL (0.00-0.50); Eosinophils % (auto) 3.8 %; Hematocrit (blood only) 44.2 % (37.0-47.0); Hemoglobin 14.5 g/dl (12.0-16.0); Immature Granulocytes # (auto) 0.02 K/uL (0.01-0.20); Immature Granulocytes % (auto) 0.3 %; Lymphocytes # (auto) 2.79 K/uL (1.20-3.40); Lymphocytes % (auto) 38.3 %; Mean Corpuscular Hemoglobin 31.5 pg (25.0-34.0); Mean Corpuscular Hgb Conc 32.8 g/dL (32.0-36.0); Mean Corpuscular Volume 95.9 fL (80.0-100.0); Mean Platelet Volume 10.4 fL (9.4-12.4); Monocytes # (auto) 0.82 K/uL (0.11-0.59); Monocytes % (auto) 11.3 %; Neutrophils # (auto) 3.34 K/uL (1.40-6.50); Neutrophils % (auto) 45.9 %; Platelet Count 219 K/uL (130-400); RDW Coefficient of Variation 12.6 % (11.5-14.5); RDW Standard Deviation 44.5 fL (36.4-46.3); Red Blood Count 4.61 M/uL (4.20-5.40); White Blood Count 7.28 K/ul (4.8-10.8)
[2025-01-16 08:44] LABS: BUN Creatinine Ratio 17.6 (10-20); Calcium 8.1 mg/dl (8.6-10.3); Creatinine Clr Calc Pharmacy 73.2 ml/min; Potassium 3.7 mmol/L (3.5-5.1)
--- NOTE | 2025-01-16 16:18 | Hospitalist Progress Note ---
Date of Service January 16, 2025 Assessment & Plan (1) Ambulatory dysfunction: Plan: 74-year-old female with past medical history significant for incontinence of feces, osteoporosis, osteoarthritis of right hip, moderate early onset Alzheimer's dementia with anxiety, mild cognitive impairment, history of fall presents with weakness and ambulatory dysfunction. says they went to [facility] and walked around the pool and after that they went to [facility]. And patient started to have some trouble initiating walking and later she was having difficulty ambulating and her knees giving away and has to put in a wheelchair and was brought to the hospital. Patient is restless. Could not get a history from the patient. As per patient currently speak only few words. But she knows her name and knows when she is in the house as per the . No complaints of pain. No fevers. No nausea. Appetite is down. Can eat regular food. Lately patient having frequent incontinence of stool and urine as per the . Currently hemodynamics are okay. As per neurology notes patient has late moderate/early severe dementia probable Alzheimer's disease with a language predominance. And she needs help with ADLs and assistance including bathing, dressing and feeding. Could not test anymore because of profound aphasia. Mild EPS with hunched posture. And shuffling steps. is the primary caregiver. Ambulatory dysfunction Weakness Possible UTI,Possible pneumonia on chest x-ray Will follow CT chest. Will follow urine cultures Will follow respiratory [employer] Gent[facility] fluids Rocephin And doxycycline PT OT when stable-likely discharge tomorrow No signs of infection Has been getting intravenous ceftriaxone and doxycycline CT of the chest has been negative for any pneumonia Urine culture has been pending Will continue antibiotic for now and await further culture results No signs of infection so we will discontinue antibiotic tomorrow Severe agitation Moderate/early severe dementia probable Alzheimer's disease with language predo minance Continue home donezepil and memantine Zyprexa as needed for agitation She required 5 mg of IM Zyprexa and also 0.25 mg Ativan around 1 AM due to prolonged agitation She has been sleeping since this morning and has not been responding to any vocal commands Remains hemodynamically stable Agitation did not require any more Zyprexa and/or Ativan-will not to use Ativan Hyperlipidemia On statin GERD on omeprazole DVT prophylaxis Lovenox Disposition Medical floor CODE STATUS full code as per discussion with Discussed with the in detail Admission and Anticipated Discharge Date Admission Date: January 14, 2025 Subjective 01/15/2025 The patient was seen and examined in medical floor in presence of the She has history of dementia and always very much agitated about 8 hours prior to coming to the floor She received total of 5 mg Zyprexa and also 0.25 mg IV of Ativan to control agitation and aggressiveness She has been sleeping since this morning and has not been answering or responding to any commands but remains hemodynamically stable 01/16/2025 The patient was seen and examined in medical floor in presence of her She has baseline dysarthria secondary to dementia She has been otherwise stable and denies any significant symptoms Awaiting PT evaluation before disposition Review of Systems Review of Systems: Unobtainable due to cognitive status Physical Exam Physical Exam: Lying in bed nonresponsive to verbal stimuli but hemodynamically stable Constitutional: well developed, well nourished and + ill appearing ENMT: external ear and nose normal, oropharynx normal Respiratory: no respiratory distress Auscultation: lungs clear to auscultation bilaterally Cardiovascular: Rate/Rhythm: regular rate, regular rhythm and + bradycardic Heart Sounds: normal S1 and normal S2; no murmur Extremities: no edema Gastrointestinal (Abdomen): Inspection/Auscultation: normal bowel sounds; abdomen not distended Percussion/Palpation: abdomen soft; abdomen nontender Musculoskeletal: No acute arthritis involving any of the joint Neurologic: Alert and awake. Pleasantly confused. Moves all extremities Psychiatric: Has significant dementia Lymphatic: no cervical or axillary lymphadenopathy Results & Data Results & Data Vital Signs (Past 12 Hours) Vital Signs Temp Pulse Resp BP Pulse Ox O2 Del Method 01/16/25 15:20 36.8 C 65 16 145/75 H 97 Room Air 01/16/25 07:05 36.3 C L 93 H 16 158/86 H 97 Room Air Laboratory Results Short CBC 01/16/25 Range/Units 07:46 WBC 7.28 (4.8-10.8) K/ul Hgb 14.5 (12.0-16.0) g/dl Hct 44.2 (37.0-47.0) % Plt Count 219 (130-400) K/uL BMP 01/16/25 07:46 Sodium 142 Potassium 3.7 Chloride 112 H Carbon Dioxide 23 BUN 12 Creatinine 0.68 Glucose 98 Calcium 8.1 L Medications Administered Current Inpatient Medications Acetaminophen (Acetaminophen 325 Mg Tab) 650 mg PO Q4H PRN PRN Reason: pain/fever Stop: 02/14/25 00:58 Atorvastatin Calcium (Atorvastatin 10 Mg Tab) 10 mg PO QAM GENEVA Stop: 02/14/25 08:59 Last Admin: 01/16/25 08:06 Dose: 10 mg Donepezil HCl (Donepezil Hcl 10 Mg Tab) 10 mg PO DAILY GENEVA Stop: 02/14/25 08:59 Last Admin: 01/16/25 08:06 Dose: 10 mg Enoxaparin Sodium (Enoxaparin Inj 40 Mg/0.4 Ml Syr) 40 mg SQ PM GENEVA Stop: 02/14/25 00:58 Last Admin: 01/15/25 20:16 Dose: 40 mg Ceftriaxone Sodium (Rocephin) 2,000 mg in 50 mls @ 100 mls/hr IV Q24H GENEVA Stop: 01/20/25 19:59 Last Infusion: 01/15/25 20:58 Dose: Infused Memantine (Memantine Hcl 10 Mg Tab) 10 mg PO BID GENEVA Stop: 02/14/25 08:59 Last Admin: 01/16/25 08:06 Dose: 10 mg Olanzapine (Olanzapine 10 Mg/2.1 Ml Sdv) 2.5 mg IM TID PRN PRN Reason: Agitation Stop: 02/14/25 00:58 Pantoprazole Sodium (Pantoprazole 40 Mg Tab) 40 mg PO DAILY GENEVA Stop: 02/14/25 08:59 Last Admin: 01/16/25 08:06 Dose: 40 mg Polyethylene Glycol (Polyethylene (Miralax) 17 Gm Pack) 17 gm PO DAILY PRN PRN Reason: Constipation Stop: 02/14/25 00:58
--- NOTE | 2025-01-17 15:30 | Discharge Summary ---
Date of Service January 17, 2025 Admission HPI Per Admitting Provider 74-year-old female with past medical history significant for incontinence of feces, osteoporosis, osteoarthritis of right hip, moderate early onset Alzheimer's dementia with anxiety, mild cognitive impairment, history of fall presents with weakness and ambulatory dysfunction. says they went to [facility] and walked around the pool and after that they went to [facility]. And patient started to have some trouble initiating walking and later she was having difficulty ambulating and her knees giving away and has to put in a wheelchair and was brought to the hospital. Patient is restless. Could not get a history from the patient. As per patient currently speak only few words. But she knows her name and knows when she is in the house as per the . No complaints of pain. No fevers. No nausea. Appetite is down. Can eat regular food. Lately patient having frequent incontinence of stool and urine as per the . Currently hemodynamics are okay. As per neurology notes patient has late moderate/early severe dementia probable Alzheimer's disease with a language predominance. And she needs help with ADLs and assistance including bathing, dressing and feeding. Could not test anymore because of profound aphasia. Mild EPS with hunched posture. And shuffling steps. is the primary caregiver. Past medical history. As mentioned above Past surgical history. . Colonoscopy. Dental surgery. Myomectomy. Adhesive capsulitis release. Social history. . Quit smoking 1984. Smokes 0.5 pack a day for 15 years. Alcohol glass of wine daily as per epic. No drug use. Family history. Son has asthma. Uncle has asthma. Maternal aunt had breast cancer. Paternal aunt had breast cancer. Mother had breast cancer at the age of 47. Father had OH. Admission Exam Per Admitting Provider Physical Exam: General- Restless. Head- atraumatic Neck- supple, no JVD. Lungs- clear to auscultation no wheezing or crackles Heart- regular rhythm; no murmur, no gallop. Abdomen- normal bowel sounds, soft, nontender, no distension Extremities- no pretibial edema, no erythema seen Neuro- Restless,, Not able to answer questions no facial palsy; moves extremities Principal Diagnosis Generalized weakness, infection ruled out, ambulatory dysfunction, Alzheimer's dementia Discharge Exam Lying in bed nonresponsive to verbal stimuli but hemodynamically stable Constitutional well developed, well nourished and + ill appearing ENMT external ear and nose normal, oropharynx normal Respiratory no respiratory distress Auscultation: lungs clear to auscultation bilaterally Cardiovascular Rate/Rhythm: regular rate, regular rhythm and + bradycardic Heart Sounds: normal S1 and normal S2; no murmur Extremities: no edema Gastrointestinal (Abdomen) Inspection/Auscultation: normal bowel sounds; abdomen not distended Percussion/Palpation: abdomen soft; abdomen nontender Lymphatic no cervical or axillary lymphadenopathy Discharge Data Allergies Allergy/AdvReac Type Severity Reaction Status Date / Time [id number] Allergy Unknown Uncoded 02/06/04 10:30 Consultations 01/14/25 21:06 ED Decision to Admit Stat Ordered Studies 01/14/25 16:51 CT head/brain wo con Stat 01/15/25 00:59 CT chest diagnostic wo con Routine Hospital Course (1) Ambulatory dysfunction: 74-year-old female with past medical history significant for incontinence of feces, osteoporosis, osteoarthritis of right hip, moderate early onset Alzheimer's dementia with anxiety, mild cognitive impairment, history of fall presents with weakness and ambulatory dysfunction. says they went to [facility] and walked around the pool and after that they went to [facility]. And patient started to have some trouble initiating walking and later she was having difficulty ambulating and her knees giving away and has to put in a wheelchair and was brought to the hospital. Patient is restless. Could not get a history from the patient. As per patient currently speak only few words. But she knows her name and knows when she is in the house as per the . No complaints of pain. No fevers. No nausea. Appetite is down. Can eat regular food. Lately patient having frequent incontinence of stool and urine as per the . Currently hemodynamics are okay. As per neurology notes patient has late moderate/early severe dementia probable Alzheimer's disease with a language predominance. And she needs help with ADLs and assistance including bathing, dressing and feeding. Could not test anymore because of profound aphasia. Mild EPS with hunched posture. And shuffling steps. is the primary caregiver. Ambulatory dysfunction Weakness Possible UTI,Possible pneumonia on chest x-ray Will follow CT chest. Will follow urine cultures Will follow respiratory [employer] Gent[employer] fluids Rocephin And doxycycline PT OT when stable-likely discharge tomorrow No signs of infection Has been getting intravenous ceftriaxone and doxycycline CT of the chest has been negative for any pneumonia Urine culture has been pending Will continue antibiotic for now and await further culture results No signs of infection so we will discontinue antibiotic tomorrow Severe agitation Moderate/early severe dementia probable Alzheimer's disease with language predominance Continue home donezepil and memantine Zyprexa as needed for agitation She required 5 mg of IM Zyprexa and also 0.25 mg Ativan around 1 AM due to prolonged agitation She has been sleeping since this morning and has not been responding to any vocal commands Remains hemodynamically stable Agitation did not require any more Zyprexa and/or Ativan-will not to use Ativan Hyperlipidemia On statin GERD on omeprazole DVT prophylaxis Lovenox Disposition Medical floor CODE STATUS full code as per discussion with Discussed with the in detail Total Time Total Time Spent Total Time Spent (In Minutes): 35 minutes Discharge Plan Discharge Items Patient Disposition: Home - Home Health Services Reason For Visit: WEAKNESS,UTI Discharge Diagnosis: Generalized weakness, infection ruled out, ambulatory dysfunction, Alzheimer's dementia Condition on Discharge: Fair Activity: Resume your previous activity Non-emergency contact: Primary Care Provider Call non-emergency contact if: you have any medication questions and your symptoms worsen Follow-up/Referrals: Ellyn Hills DO [Primary Care Provider] - (Date & Time 01/23/2025 6:00 PM Provider: Ellyn Hills DO [facility] ) Diet: Heart Healthy Addtl Attending Provider Instructions: Please take precautions to avoid falls No change in your medications Try to drink more fluid Continue with the home physical therapy Please keep your appointment with the healthcare provider Pending Studies at Discharge: No Stand-Alone Forms: [employer], Smoking Cessation Medications and DC Order Prescriptions: Continued atorvastatin 10 mg tablet 10 mg PO QAM donepezil 10 mg tablet 10 mg PO DAILY memantine 10 mg tablet 10 mg PO BID omeprazole 20 mg Tablet,Delayed Release (Dr/Ec) 20 mg PO DAILY Discharge Orders: Discharge Order (Routine); Ordered 01/17/25 Ordered By: Chintan Nash Admission Data Admit Date/Time: 01/14/25 21:14 Attending Provider: Chintan Nash Admit Provider: Alon Hoyt Primary Care Provider: Ellyn Hills Other Providers: Alon Hoyt
[2025-01-17 15:49] VITALS: BP 121/64; PULSE 71; RESP 15; TEMP 98.4; O2SAT 95
== END 2025-01-17 16:56 | disposition home health service (06) | DRG 556 ==
LOC: ED 16:37 → 3N 21:14